=== PATIENT | female | born 1945 | race Caucasian/White ===

== ENCOUNTER → 2017-07-01 | Outpatient (CLI) | payer OTHER ==
[~2017-07-01] MED LIST: ACET-1256; ALBUAER2; [UNRECOGNIZED DRUG - OTHER]
--- NOTE | 2017-07-01 12:45 | DIAGNOSTIC IMAGING REPORT ---
RIGHT WRIST 4 VIEWS HISTORY: PAIN IN RIGHT WRIST COMPARISON: None. FINDINGS: No acute fracture or dislocation within the right wrist. The bones are osteopenic. 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 Mild osteoarthritis at the radiocarpal joint. Mild soft tissue swelling. No radiopaque foreign bodies. IMPRESSION: Mild soft tissue swelling within the right wrist. No acute fracture or dislocation. Electronically signed by: Alfonso Ferguson M.D. 07/01/2017 12:44 PM Dictated Date/Time: 07/01/2017 12:41 PM
== END | disposition home or self-care (01) ==
LOC: C.RAD1850 12:20
PROVIDERS: ATTEND Student in an Organized Health Care Education/Training Program
DX: M25.531 Pain in right wrist (principal); Z85.820 Personal history of malignant melanoma of skin

== ENCOUNTER 2019-10-24 17:35 | Inpatient (IN) ==
[2019-10-24] MEDS ORDERED: SODIUM CHLORIDE 0.9% 250 ML IV PRN ×2 (18:22→22:44)
[2019-10-24] MEDS ORDERED: PANTOprazole 80 MG in DEXTROSE 5% 100 ML IV ONE (18:22)
[2019-10-24] MEDS ORDERED: PANTOprazole 80 MG in DEXTROSE 5% 100 ML IV SCH (18:22)
--- NOTE | 2019-10-24 18:30 | Emergency Department Note ---
History of Present Illness General Chief complaint: Illness Stated complaint: HEMOGLOBIN IS 6, DR MCCLOUD, SOB, DIZZY Time Seen by Provider: 10/24/19 18:06 Source: patient Mode of arrival: ambulatory Limitations: no limitations History of Present Illness Provider complaint: Shortness of breath Onset (ago): month(s) Location: chest Severity: moderate Pain Consistency: + intermittent Maximum Pain Intensity: 2 Current Pain Intensity: 0 Quality: + other (Tightness) Exacerbated By: + other (Exertion) Associated symptoms: + chest pain; no cough, no fever/chills, no headaches and no malaise This is a 74-year-old female sent here for evaluation from her PCPs office after she had blood work today showing a hemoglobin of 6. The patient has been having shortness of breath since August. She states that initially it was from very long walks but she now states that even vacuuming the house makes her short of breath. She has also had chest pain with the shortness of breath. She describes it as a tightness in the center of her chest without radiation. She does not currently have the chest pain. It is worse with exertion. She went to see her PCP today who ordered a chest x-ray and blood work. She got a call after having her chest x-ray to go to the emergency department because her hemoglobin was 6. She does state that she has been having black stools intermittently for several months. The last time she had an episode was approximately within the past 6 to 10 days. She denies NSAID use. She does not take any blood thinners or aspirin. She denies any abdominal pain but states that her stomach has been gurgling quite a bit. Home Medications Home Medications Medication Instructions Recorded Confirmed Type acetaminophen 1,000 mg PO BID 10/24/19 10/24/19 History ascorbic acid (vitamin C) [Vitamin See Rx Instructions .ROUTE .COMPLEX 10/24/19 10/24/19 History C With Alana Hips] glucosamine-chondroitin [Osteo 1 tab PO BID 10/24/19 10/24/19 History Bi-Flex] multivitamin 1 tab PO DAILY 10/24/19 10/24/19 History omega 4-zol-oog-fish oil [Fish Oil] 1 cap PO DAILY 10/24/19 10/24/19 History Allergies Allergy/AdvReac Type Severity Reaction Status Date / Time codeine AdvReac Mild Nausea/Vomi Verified 10/24/19 19:35 ting Past Med/Surg History Medical History Asthma Osteoporosis Prediabetes Social History Preferred Language: 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 and A total of 10 systems reviewed and were otherwise negative Physical Exam Vital Signs Vital Signs - 24 hr 10/24/19 17:49 10/24/19 18:22 10/24/19 18:51 Temperature 37.0 C Temperature Source Oral Pulse Rate 89 80 Pulse Rate from SpO2 Sensor 80 Pulse Rhythm Pulse Strength Respiratory Rate 20 17 Blood Pressure 156/65 H 100/67 Blood Pressure Mean 95 74 Blood Pressure Position Sitting Pulse Oximetry 97 99 98 Oxygen Delivery Method Room Air Room Air Sepsis Recent Fever Within 48 Hours No Sepsis New/Unexplained Change in Mental Status No Sepsis Action Taken by Nursing No Action Required 10/24/19 19:30 10/24/19 19:46 10/24/19 20:41 Temperature 37.1 C Temperature Source Oral Pulse Rate 75 73 80 Pulse Rate from SpO2 Sensor 74 73 Pulse Rhythm Regular Pulse Strength Normal Respiratory Rate 17 14 20 Blood Pressure 130/59 L 135/59 L Blood Pressure Mean 87 84 Blood Pressure Position Lying Pulse Oximetry 98 97 97 Oxygen Delivery Method Room Air Room Air Sepsis Recent Fever Within 48 Hours Sepsis New/Unexplained Change in Mental Status Sepsis Action Taken by Nursing Constitutional: Vital signs reviewed. Eyes: Pupils are equal round reactive to light. Conjunctiva are noninjected. ENT: Pharynx is clear without erythema or exudate. Mucous membranes are moist. Neck supple without meningeal signs. Respiratory: Clear to auscultation bilaterally. Breath sounds are equal bilaterally. Cardiovascular: Regular rate and rhythm. No rubs or gallops. GI: Soft, nondistended and nontender. Bowel sounds are present. Guaiac positive brown stool. No melena or gross blood. Musculoskeletal: No peripheral edema. No lower extremity tenderness. Integumentary: No cyanosis. or jaundice. Neurological: The patient is awake and alert. No focal deficits. Psychiatric: Normal affect. Not anxious appearing. Course Administered Medications Discontinued Medications Pantoprazole Sodium 80 mg/ (Dextrose) 120 mls @ 480 mls/hr IV 1822 ASUNCION Stop: 10/24/19 18:36 Last Infusion: 10/24/19 19:20 Dose: 0 mls/hr Documented by: [id number] Admin: 10/24/19 19:03 Dose: 480 mls/hr Documented by: [id number] Critical Care Time Critical Care Time: Yes Total Critical Care Time: 36 I have personally spent approximately 36 minutes of critical care time in the direct management of this patient. This includes bedside care, interpretation of diagnostic studies, and testing, discussion with consultants, patient, and family members, and other required patient management activities. These minutes are in excess of all separately billable procedures. Medical Decision Making Differential Diagnosis Acute coronary syndrome, pneumonia, pleural effusion, GI bleed, anemia Medical Records Attestation: I reviewed the patient's medical records. The patient had a chest x-ray today which was unremarkable. Home Medications Current Medication List: was personally reviewed by me Laboratory Data Attestation: I reviewed the patient's lab results. Result diagrams: 10/24/19 18:34 10/24/19 18:34 Lab Results 10/24/19 10/24/19 10/24/19 Range/Units 18:34 18:34 18:34 WBC 6.11 (4.8-10.8) K/uL RBC 3.28 L (4.2-5.4) M/uL Hgb 5.8 L* (12.0-16.0) g/dL Hct 21.6 L (37-47) % MCV 65.9 L (80-100) fL MCH 17.7 L (25-34) pg MCHC 26.9 L (32-36) g/dL RDW Std Deviation 36.9 (36.4-46.3) fL RDW Coeff of Wesley 15.3 H (11.5-14.5) % Plt Count 299 (130-400) K/uL MPV 9.1 (7.4-10.4) fL Immature Gran % (Auto) 0.2 % Neut % (Auto) 60.0 % Lymph % (Auto) 25.9 % [place] % (Auto) 8.5 % Eos % (Auto) 4.3 % Baso % (Auto) 1.1 % Immature Gran # (Auto) 0.01 (0.00-0.02) K/uL Neut # (Auto) 3.67 (1.4-6.5) K/uL Lymph # (Auto) 1.58 (1.2-3.4) K/uL [place] # (Auto) 0.52 (0.11-0.59) K/uL Eos # (Auto) 0.26 (0-0.5) K/uL Baso # (Auto) 0.07 (0-0.2) K/uL Hypochromasia Present Microcytosis Present Ovalocytes 1+ PT 10.9 (9.0-12.0) Seconds INR 1.0 (0.9-1.1) APTT 20.9 L (21.0-31.0) Seconds PTT Ratio 0.7 Sodium 141 (136-145) mmol/L Potassium 3.7 (3.5-5.1) mmol/L Chloride 107 (98-107) mmol/L Carbon Dioxide 22 (21-32) mmol/L Anion Gap 12.0 H (3-11) BUN 11 (7-18) mg/dl Creatinine 0.89 (0.6-1.2) mg/dl Est Cr Clr Drug Dosing 53.5 ml/min Est GFR ( Amer) 74.5 Est GFR (Non-Af Amer) 64.3 BUN/Creatinine Ratio 12.1 (10-20) Glucose 125 H (70-99) mg/dl Calcium 8.7 (8.5-10.1) mg/dl Total Bilirubin 0.2 (0.2-1) mg/dl AST 9 L (15-37) U/L ALT 14 (12-78) U/L Alkaline Phosphatase 74 (45-117) U/L Troponin I < 0.015 (0-0.045) ng/ml Total Protein 6.6 (6.4-8.2) gm/dl Albumin 3.4 (3.4-5.0) gm/dl Globulin 3.2 (2.5-4.0) gm/dl Albumin/Globulin Ratio 1.1 (0.9-2) Blood Type Blood Type Recheck Antibody Screen Crossmatch 10/24/19 10/24/19 Range/Units 18:36 19:32 WBC (4.8-10.8) K/uL RBC (4.2-5.4) M/uL Hgb (12.0-16.0) g/dL Hct (37-47) % MCV (80-100) fL MCH (25-34) pg MCHC (32-36) g/dL RDW Std Deviation (36.4-46.3) fL RDW Coeff of Wesley (11.5-14.5) % Plt Count (130-400) K/uL MPV (7.4-10.4) fL Immature Gran % (Auto) % Neut % (Auto) % Lymph % (Auto) % [place] % (Auto) % Eos % (Auto) % Baso % (Auto) % Immature Gran # (Auto) (0.00-0.02) K/uL Neut # (Auto) (1.4-6.5) K/uL Lymph # (Auto) (1.2-3.4) K/uL [place] # (Auto) (0.11-0.59) K/uL Eos # (Auto) (0-0.5) K/uL Baso # (Auto) (0-0.2) K/uL Hypochromasia Microcytosis Ovalocytes PT (9.0-12.0) Seconds INR (0.9-1.1) APTT (21.0-31.0) Seconds PTT Ratio Sodium (136-145) mmol/L Potassium (3.5-5.1) mmol/L Chloride (98-107) mmol/L Carbon Dioxide (21-32) mmol/L Anion Gap (3-11) BUN (7-18) mg/dl Creatinine (0.6-1.2) mg/dl Est Cr Clr Drug Dosing ml/min Est GFR ( Amer) Est GFR (Non-Af Amer) BUN/Creatinine Ratio (10-20) Glucose (70-99) mg/dl Calcium (8.5-10.1) mg/dl Total Bilirubin (0.2-1) mg/dl AST (15-37) U/L ALT (12-78) U/L Alkaline Phosphatase (45-117) U/L Troponin I (0-0.045) ng/ml Total Protein (6.4-8.2) gm/dl Albumin (3.4-5.0) gm/dl Globulin (2.5-4.0) gm/dl Albumin/Globulin Ratio (0.9-2) Blood Type A Positive Blood Type Recheck A Positive Antibody Screen NEGATIVE Crossmatch See Detail Imaging Data Radiologist's Impression: TWO VIEW CHEST CLINICAL HISTORY: Progressive dyspnea. FINDINGS: PA and lateral chest radiographs are compared to study dated 08/13/2006. The cardiomediastinal silhouette is unremarkable. There is a large hiatal hernia with associated basilar atelectasis. The lungs and pleural spaces are otherwise clear. There is no pneumothorax. The skeletal structures are osteopenic. The bony thorax appears intact. IMPRESSION: 1. No active disease in the chest. 2. Large hiatal hernia. ECG Data Attestation: I personally reviewed and interpreted this ECG as follows: Indication: + chest pain Rate (beats per minute): 86 Rhythm: + normal sinus ECG Intervals/blocks: no First degree AV block ECG ST segments: no ST elevation ECG Findings: no PVCs Blood Pressure Blood Pressure Findings: Elevated blood pressure Blood Pressure Disposition: further management by hospitalist [facility] Narrative I did evaluate the patient as noted above. The patient is presenting with exertional dyspnea and chest pain. She is not currently having those symptoms. She was told by her PCP today that her hemoglobin was 6. She does admit to melanotic stools for the past several months and has guaiac positive stool here on my exam. IV access was established. I did place an order for continuous cardiac monitoring. The monitor showed normal sinus rhythm with a rate of 89. I did order and personally review the patient's 12-lead EKG as described above. There is no evidence of acute ischemia on twelve-lead EKG. I did personally reviewed the images of the patient's chest x-ray performed earlier today as described above. There is no acute abnormality. I did obtain informed consent for blood transfusion and ordered 2 units of packed RBCs to be transfused now. I did order Protonix IV. I did order and review the patient's blood work as noted in the electronic medical record. Her hemoglobin is 5.8 here. Her white count is elevated. Troponin is negative. I did discuss the test results with the patient. Transfusion was started in the emergency department. She states she had a colonoscopy about 2 months ago but does not know she has had endoscopy. She will be admitted to the hospital for further care and evaluation. I did discuss the case with the hospitalist and case consultant. Impression & Plan Acute GI bleeding, Symptomatic anemia, Chest pain, exertional Discharge Plan Visit Data *Final* Discharge Date/Time: 10/24/19 21:30 Chief Complaint: Illness Stated Complaint: HEMOGLOBIN IS 6, DR SENT, SOB, DIZZY ED Provider: Jay Erwin Discharge Problem: Acute GI bleeding, Symptomatic anemia, Chest pain, exertional Patient Disposition: Admitted As Inpatient Discharge Instructions Interventions: ED Discharge Assessment Last Done: 10/24/19 21:30
[2019-10-24 19:01] LABS: Partial Thromboplastin Ratio 0.7; Partial Thromboplastin Time 20.9 Seconds (21.0-31.0); Prothrombin Time 10.9 Seconds (9.0-12.0)
[2019-10-24 19:05] LABS: Hematocrit (blood only) 21.6 % (37-47); Hemoglobin 5.8 g/dL (12.0-16.0); Mean Corpuscular Hemoglobin 17.7 pg (25-34); Mean Corpuscular Hgb Conc 26.9 g/dL (32-36); Mean Corpuscular Volume 65.9 fL (80-100); Mean Platelet Volume 9.1 fL (7.4-10.4); Platelet Count 299 K/uL (130-400); RDW Coefficient of Variation 15.3 % (11.5-14.5); RDW Standard Deviation 36.9 fL (36.4-46.3); Red Blood Count 3.28 M/uL (4.2-5.4); White Blood Count 6.11 K/uL (4.8-10.8)
[2019-10-24 19:16] LABS: Alanine Aminotransferase 14 U/L (12-78); Albumin Level 3.4 gm/dl (3.4-5.0); Aspartate Aminotransferase 9 U/L (15-37); BUN Creatinine Ratio 12.1 (10-20); Blood Urea Nitrogen 11 mg/dl (7-18); Calcium 8.7 mg/dl (8.5-10.1); Carbon Dioxide 22 mmol/L (21-32); Chloride 107 mmol/L (98-107); Creatinine Clr Calc Pharmacy 53.5 ml/min; Est GFR (African American) 74.5; Est GFR (Non-African American) 64.3; Glucose 125 mg/dl (70-99); Potassium 3.7 mmol/L (3.5-5.1); Sodium 141 mmol/L (136-145)
[2019-10-24 19:21] LABS: Albumin Globulin Ratio 1.1 (0.9-2); Alkaline Phosphatase 74 U/L (45-117); Bilirubin,Total 0.2 mg/dl (0.2-1); Globulin 3.2 gm/dl (2.5-4.0); Total Protein 6.6 gm/dl (6.4-8.2); Troponin I < 0.015 ng/ml (0-0.045)
[2019-10-24 19:56] LABS: Basophils # (auto) 0.07 K/uL (0-0.2); Basophils % (auto) 1.1 %; Eosinophils # (auto) 0.26 K/uL (0-0.5); Eosinophils % (auto) 4.3 %; Hypochromasia Present; Immature Granulocytes # (auto) 0.01 K/uL (0.00-0.02); Immature Granulocytes % (auto) 0.2 %; Lymphocytes # (auto) 1.58 K/uL (1.2-3.4); Lymphocytes % (auto) 25.9 %; Microcytosis Present; Monocytes # (auto) 0.52 K/uL (0.11-0.59); Monocytes % (auto) 8.5 %; Neutrophils # (auto) 3.67 K/uL (1.4-6.5); Ovalocytes 1+
--- NOTE | 2019-10-24 21:20 | History & Physical Report ---
Date of Service October 24, 2019 Assessment & Plan (1) Symptomatic anemia: Aleah Antonio is a 74y/o F w/ PMH significant for asthma, and a h/o melanoma; presented to the ED after she having blood work completed by PCP earlier today that demonstrated a hemoglobin of 6. Symptomatic anemia: - ? GI blood loss given recent stool changes verse iron deficiency - Hgb 5.8 on admission - patient typed and crossed, set to be transfused two units overnight - repeat CBC in AM - Iron studies not completed prior to start of transfusions - Ferritin pending Diet: NPO DVT ppx: Code status: Conditional code: do not intubate, no mechanical ventilation (2) Asthma: History of Present Illness Primary Care Provider: Virgilio Carlson MD Aleah Antonio is a 74y/o F w/ PMH significant for asthma, and a h/o melanoma; presented to the ED after she having blood work completed by PCP earlier today that demonstrated a hemoglobin of 6. Over the last several months she has noted worsening shortness of breath, and increasingly easy fatigability; she first noticed this in June when she was forced to reduce the length of her regular treadmill walking workouts from 30-35 minute stretches to 15 minutes before she felt fatigued. This continued to progress over the following months but given concern for COVID-19 in the general public she avoided being seen at that time. Since August she has noticed that this has worsened to the point that she couldn't even make it to the mailbox without feeling short of breath. During these episodes she feels her heart racing, feels short of breath, and has a chest tightness that does not radiate. Additionally over the last two months has noticed that over the last two months she has episodically had loose dark stools; she first noticed these after she ate 6 apricots and then the next morning she had loose stools that were darker brown. She denies any visible blood in the toilet or on the toilet paper, or a black tarry nature to the stools. These stools will happen approximately every 5-10 days with the last episode happening approximately 6 days ago. Allergies Allergy/AdvReac Type Severity Reaction Status Date / Time codeine AdvReac Mild Nausea/Vomi Verified 10/24/19 19:35 ting Home Medications Home Medications Medication Instructions Recorded Confirmed Type acetaminophen 1,000 mg PO BID 10/24/19 10/24/19 History ascorbic acid (vitamin C) [Vitamin See Rx Instructions .ROUTE .COMPLEX 10/24/19 10/24/19 History C With Alana Hips] glucosamine-chondroitin [Osteo 1 tab PO BID 10/24/19 10/24/19 History Bi-Flex] multivitamin 1 tab PO DAILY 10/24/19 10/24/19 History omega 3-qux-zzx-fish oil [Fish Oil] 1 cap PO DAILY 10/24/19 10/24/19 History Past Med/Surg History Medical History Asthma Osteoporosis Prediabetes Social History Preferred Language: Libyan 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 Beliefs That Will Affect Care: None Current Living Situation: Family Other Information That Helps Us Care for You: No Feels Safe at Home: Yes Safety Concerns: Feels Safe At This Time Smoking Status: Never smoker Hx Alcohol Use: Yes Alcohol type: wine Hx Substance Use: No Review of Systems Review of Systems: All systems reviewed & are unremarkable except as noted in HPI & below Physical Exam Constitutional: WD/WN, vitals as above Eyes: PERRL, conjunctivae normal, anicteric sclerae ENMT: external ear and nose normal, oropharynx normal Neck: normal visual inspection Respiratory: normal respiratory effort, lungs clear to auscultation Cardiovascular: Rate/Rhythm: regular rate and regular rhythm Heart Sounds: normal S1 and normal S2; no gallop, no murmur and no cardiac rub Vessels: no JVD Extremities: no edema Gastrointestinal (Abdomen): normal bowel sounds, soft, nontender, no hepatosplenomegaly Musculoskeletal: no cyanosis or clubbing, extremities motor strength 5/5 Skin: no rashes, warm and dry no jaundice Neurologic: patellar DTR's 2+ bilat, sensation intact CN's II-XI intact bilaterally Psychiatric: A+Ox3, euthymic affect Lymphatic: no cervical or axillary lymphadenopathy Results & Data Results & Data ([facility]) Vital Signs (Past 12 Hours) Vital Signs Temp Pulse Resp BP Pulse Ox 10/24/19 21:01 37.1 C 69 20 128/60 95 10/24/19 20:41 37.1 C 80 20 135/59 L 97 10/24/19 19:46 73 14 130/59 L 97 10/24/19 19:30 75 17 98 10/24/19 18:51 80 17 100/67 98 10/24/19 18:22 99 10/24/19 17:49 37.0 C 89 20 156/65 H 97 Laboratory Results 10/24/19 10/24/19 10/24/19 Range/Units 19:32 18:36 18:34 WBC (4.8-10.8) K/uL RBC (4.2-5.4) M/uL Hgb (12.0-16.0) g/dL Hct (37-47) % MCV (80-100) fL MCH (25-34) pg MCHC (32-36) g/dL RDW Std Deviation (36.4-46.3) fL RDW Coeff of Wesley (11.5-14.5) % Plt Count (130-400) K/uL MPV (7.4-10.4) fL Immature Gran % (Auto) % Neut % (Auto) % Lymph % (Auto) % [place] % (Auto) % Eos % (Auto) % Baso % (Auto) % Immature Gran # (Auto) (0.00-0.02) K/uL Neut # (Auto) (1.4-6.5) K/uL Lymph # (Auto) (1.2-3.4) K/uL [place] # (Auto) (0.11-0.59) K/uL Eos # (Auto) (0-0.5) K/uL Baso # (Auto) (0-0.2) K/uL Hypochromasia Microcytosis Ovalocytes PT 10.9 (9.0-12.0) Seconds INR 1.0 (0.9-1.1) APTT 20.9 L (21.0-31.0) Seconds PTT Ratio 0.7 Sodium (136-145) mmol/L Potassium (3.5-5.1) mmol/L Chloride (98-107) mmol/L Carbon Dioxide (21-32) mmol/L Anion Gap (3-11) BUN (7-18) mg/dl Creatinine (0.6-1.2) mg/dl Est Cr Clr Drug Dosing ml/min Est GFR ( Amer) Est GFR (Non-Af Amer) BUN/Creatinine Ratio (10-20) Glucose (70-99) mg/dl Calcium (8.5-10.1) mg/dl Total Bilirubin (0.2-1) mg/dl AST (15-37) U/L ALT (12-78) U/L Alkaline Phosphatase (45-117) U/L Troponin I (0-0.045) ng/ml Total Protein (6.4-8.2) gm/dl Albumin (3.4-5.0) gm/dl Globulin (2.5-4.0) gm/dl Albumin/Globulin Ratio (0.9-2) Blood Type A Positive Blood Type Recheck A Positive Antibody Screen NEGATIVE Crossmatch See Detail 10/24/19 10/24/19 Range/Units 18:34 18:34 WBC 6.11 (4.8-10.8) K/uL RBC 3.28 L (4.2-5.4) M/uL Hgb 5.8 L* (12.0-16.0) g/dL Hct 21.6 L (37-47) % MCV 65.9 L (80-100) fL MCH 17.7 L (25-34) pg MCHC 26.9 L (32-36) g/dL RDW Std Deviation 36.9 (36.4-46.3) fL RDW Coeff of Wesley 15.3 H (11.5-14.5) % Plt Count 299 (130-400) K/uL MPV 9.1 (7.4-10.4) fL Immature Gran % (Auto) 0.2 % Neut % (Auto) 60.0 % Lymph % (Auto) 25.9 % [place] % (Auto) 8.5 % Eos % (Auto) 4.3 % Baso % (Auto) 1.1 % Immature Gran # (Auto) 0.01 (0.00-0.02) K/uL Neut # (Auto) 3.67 (1.4-6.5) K/uL Lymph # (Auto) 1.58 (1.2-3.4) K/uL [place] # (Auto) 0.52 (0.11-0.59) K/uL Eos # (Auto) 0.26 (0-0.5) K/uL Baso # (Auto) 0.07 (0-0.2) K/uL Hypochromasia Present Microcytosis Present Ovalocytes 1+ PT (9.0-12.0) Seconds INR (0.9-1.1) APTT (21.0-31.0) Seconds PTT Ratio Sodium 141 (136-145) mmol/L Potassium 3.7 (3.5-5.1) mmol/L Chloride 107 (98-107) mmol/L Carbon Dioxide 22 (21-32) mmol/L Anion Gap 12.0 H (3-11) BUN 11 (7-18) mg/dl Creatinine 0.89 (0.6-1.2) mg/dl Est Cr Clr Drug Dosing 53.5 ml/min Est GFR ( Amer) 74.5 Est GFR (Non-Af Amer) 64.3 BUN/Creatinine Ratio 12.1 (10-20) Glucose 125 H (70-99) mg/dl Calcium 8.7 (8.5-10.1) mg/dl Total Bilirubin 0.2 (0.2-1) mg/dl AST 9 L (15-37) U/L ALT 14 (12-78) U/L Alkaline Phosphatase 74 (45-117) U/L Troponin I < 0.015 (0-0.045) ng/ml Total Protein 6.6 (6.4-8.2) gm/dl Albumin 3.4 (3.4-5.0) gm/dl Globulin 3.2 (2.5-4.0) gm/dl Albumin/Globulin Ratio 1.1 (0.9-2) Blood Type Blood Type Recheck Antibody Screen Crossmatch Medications Administered Current Inpatient Medications Sodium Chloride (Nss) 250 mls @ 15 mls/hr IV .[id number] PRN PRN Reason: For Transfusion Stop: 10/25/19 04:24 Supervising Physician Co-Signing Physician Notes Patient seen and examined, chart reviewed, case discussed with Dr. Barraza and I agree with his assessment and plan as documented above. Briefly, patient is a 74yo C female presenting with symptomatic anemia,?melenic stools ongoing over the last 2 months. On exam she is afebrile, HD stable, NAD Skin - +pallor, no rash HEENT - NC/AT,PERRL, EOMI, MMM, Neck supple Heart - +S1/S2, regular, no m/r/g Lungs- CTA Abd - +BS, soft, NT/ND Ext - No edema Labs and images reviewed. Significant for microcytic/hypochromic anemia with Hgb=5.8 Trop = negative EKG = unremarkable Hemoccult + stools per ER Assessment/Plan: 74yo C female presenting with symptomatic anemia, ?GIB -Admit to medical floor -Transfuse 2uPRBCs, monitor CBC -GI consultation apprecated -Remainder of plan as above Resident Activity Tracking Resident Involvement: Resident Care Provided Care Provided: Adult Hospital Medicine
[2019-10-24] MEDS ORDERED: ALUMINUM/MAGNESIUM SUSP 30 ML UDC PO PRN (21:50)
[2019-10-24] MEDS ORDERED: POLYETHYLENE (MIRALAX) 17 GM PACK PO PRN (21:50)
[2019-10-24] MEDS ORDERED: ONDANSETRON INJ 2 MG/ML 2 ML VIAL IV PRN (21:50)
[2019-10-24] MEDS ORDERED: MAGNESIUM HYDROXIDE SUSP 30 ML UDC PO PRN (21:50)
--- NOTE | 2019-10-25 06:59 | Billing Data ---
Date of Service October 25, 2019 Coding Level of Care Code 38658 Initial Inpt Care Lvl 2
[2019-10-25 07:51] LABS: Hematocrit (blood only) 27.7 % (37-47); Hemoglobin 7.9 g/dL (12.0-16.0); Mean Corpuscular Hemoglobin 19.9 pg (25-34); Mean Corpuscular Hgb Conc 28.5 g/dL (32-36); Mean Corpuscular Volume 69.9 fL (80-100); Mean Platelet Volume 9.4 fL (7.4-10.4); Platelet Count 253 K/uL (130-400); RDW Coefficient of Variation 18.6 % (11.5-14.5); RDW Standard Deviation 47.5 fL (36.4-46.3); Red Blood Count 3.96 M/uL (4.2-5.4); White Blood Count 6.42 K/uL (4.8-10.8)
[2019-10-25 08:10] LABS: Basophils # (auto) 0.04 K/uL (0-0.2); Basophils % (auto) 0.6 %; Eosinophils % (auto) 4.7 %; Hypochromasia Present; Immature Granulocytes # (auto) 0.02 K/uL (0.00-0.02); Immature Granulocytes % (auto) 0.3 %; Lymphocytes # (auto) 1.57 K/uL (1.2-3.4); Lymphocytes % (auto) 24.5 %; Microcytosis Present; Monocytes # (auto) 0.64 K/uL (0.11-0.59); Neutrophils # (auto) 3.85 K/uL (1.4-6.5); Neutrophils % (auto) 59.9 %
[2019-10-25 08:17] LABS: BUN Creatinine Ratio 13.3 (10-20); Calcium 8.2 mg/dl (8.5-10.1); Creatinine Clr Calc Pharmacy 70.8 ml/min; Est GFR (African American) 101.1; Est GFR (Non-African American) 87.2; Magnesium 2.1 mg/dl (1.8-2.4); Phosphorus 3.7 mg/dl (2.5-4.9); Potassium 3.7 mmol/L (3.5-5.1)
[2019-10-25] MEDS ORDERED: SODIUM CHLORIDE 0.9% 250 ML IV PRN ×2 (08:49→09:50)
--- NOTE | 2019-10-25 09:33 | Gastrointestinal Consultation ---
Date of Consultation October 25, 2019 Assessment & Plan (1) Symptomatic anemia: (2) Heme positive stool: (3) Chronic blood loss anemia: Keep NPO at present. EGD today, with further recommendations to follow. History of Present Illness Reason for Consultation: Heme positive stool, Chronic blood loss anemia Attending Physician: Elisha Truong DO History of Present Illness Aleah Antonio presented to the [facility] yesterday after having outpatient lab work secondary to fatigue and SOB, and was noted to have profound anemia with an H/H of 5.8/21.6. She was given a bolus of Pantoprazole 80 mg in the ER, and was admitted. At the time I saw her this AM, she was feeling better after she had received 2 u PRBC. She currently denies any fevers, chills, nausea, vomiting, diarrhea, hematemesis, hematochezia or melena at present. She notes that in June she had increased fatigue and decreased exercise tolerance. She noted that she has had multiple black stools over the past few months. She states that she does not routinely take NSAID's. She had a normal brown BM yesterday. She states she has no history of heartburn or ulcers, and does not take any antacids. Her last colonoscopy was 1 year ago. She has no further complaints. Allergies Allergy/AdvReac Type Severity Reaction Status Date / Time codeine AdvReac Mild Nausea/Vomi Verified 10/24/19 19:35 ting Home Medications Home Medications Medication Instructions Recorded Confirmed Type acetaminophen 1,000 mg PO BID 10/24/19 10/24/19 History ascorbic acid (vitamin C) [Vitamin See Rx Instructions .ROUTE .COMPLEX 10/24/19 10/24/19 History C With Alana Hips] glucosamine-chondroitin [Osteo 1 tab PO BID 10/24/19 10/24/19 History Bi-Flex] multivitamin 1 tab PO DAILY 10/24/19 10/24/19 History omega 8-rxu-mpm-fish oil [Fish Oil] 1 cap PO DAILY 10/24/19 10/24/19 History Patient History Medical History Asthma Osteoporosis Prediabetes Social History Preferred Language: Maltese [employer]ant Swimmer Required: No Beliefs That Will Affect Care: None Current Living Situation: Family Other Information That Helps Us Care for You: No Feels Safe at Home: Yes Safety Concerns: Feels Safe At This Time Smoking Status: Never smoker Hx Alcohol Use: Yes Alcohol type: wine Hx Substance Use: No Review of Systems Review of Systems: All systems reviewed & are unremarkable except as noted in HPI & below Physical Exam Constitutional: WD/WN, vitals as above Eyes: PERRL, conjunctivae normal, anicteric sclerae ENMT: external ear and nose normal, oropharynx normal Neck: trachea midline, no thyromegaly Respiratory: normal respiratory effort, lungs clear to auscultation Cardiovascular: RRR, no murmur, no edema Gastrointestinal (Abdomen): normal bowel sounds, soft, nontender, no hepatosplenomegaly Skin: no rashes, warm and dry Psychiatric: A+Ox3, euthymic affect Results & Data ([facility]) Vital Signs (Past 12 Hours) Vital Signs Temp Pulse Pulse Resp BP BP Pulse Ox 10/25/19 08:35 64 10/25/19 07:55 36.8 C 68 16 113/51 L 96 10/25/19 03:01 36.9 C 69 19 120/58 L 94 10/25/19 02:24 37.1 C 18 133/68 95 10/25/19 02:07 37.1 C 68 16 135/67 95 10/25/19 01:07 36.8 C 134/66 96 10/25/19 00:37 37.1 C 70 17 133/66 95 10/25/19 00:21 37.0 C 69 18 127/63 96 10/25/19 00:05 37.0 C 74 18 143/61 H 97 10/25/19 00:03 37.0 C 76 18 143/61 H 97 10/24/19 22:20 72 10/24/19 22:12 37.0 C 80 14 148/55 H 98 10/24/19 22:05 71 10/24/19 21:48 37.0 C 80 14 148/55 H 98 PG Care Time/CCT Total # of Minutes Spent Total Time Spent with Patient: Total time spent is greater than 50% in coordination of care (as documented) at patient's floor/unit and/or counseling patient: Coding Level of Care Code 29652 Inpt Consult Level 3 Diagnoses Symptomatic anemia D64.9 Heme positive stool R19.5 Chronic blood loss anemia D50.0
[2019-10-25] MEDS ORDERED: ATROPINE SULFATE 0.1 MG/ML 10ML SYR IV PRN (11:12)
[2019-10-25] MEDS ORDERED: ONDANSETRON INJ 2 MG/ML 2 ML VIAL IV PRN (11:12)
[2019-10-25] MEDS ORDERED: ePHEDrine sulfate 50 MG/ML AMP IV PRN (11:12)
--- NOTE | 2019-10-25 11:12 | Anesthesiology Consultation ---
Date of Service October 25, 2019 Assessment & Plan ASA ASA3 Proposed Anesthesia Anesthesia Type: MAC Risk / Benefits Reviewed With: PT / POA / Parent / Guardian, Accepts Plan and Informed Consent Obtained History Surgery Operation Date: 10/25/19 16:00 Proposed Procedures p Esophagogastroduodenoscopy Dr Esdras Dewitt, DO Height/Weight Height: 5 ft 4 in Weight: 67.8 kg Allergies Allergy/AdvReac Type Severity Reaction Status Date / Time codeine AdvReac Mild Nausea/Vomi Verified 10/24/19 19:35 ting Medications Home Medications Medication Instructions Recorded Confirmed Last Taken acetaminophen 1,000 mg PO BID 10/24/19 10/24/19 Unknown ascorbic acid (vitamin C) [Vitamin See Rx Instructions .ROUTE .COMPLEX 10/24/19 10/24/19 Unknown C With Alana Hips] glucosamine-chondroitin [Osteo 1 tab PO BID 10/24/19 10/24/19 Unknown Bi-Flex] multivitamin 1 tab PO DAILY 10/24/19 10/24/19 Unknown omega 8-erj-san-fish oil [Fish Oil] 1 cap PO DAILY 10/24/19 10/24/19 Unknown NPO Date Last Intake of Fluids: 10/24/19 Time Last Intake of Fluids: 10:30 Last Intake of Fluids Comment: ice chips Date Last Intake of Solids: 10/24/19 Time Last Intake of Solids: 17:00 Last Intake of Solids Comment: apple sauce, yogurt Past Medical History Medical History Asthma Osteoporosis Prediabetes Exercise / Class Metabolic Activity II 4-5 Yardwork/Stairs/Walk up hill Past Anesthesia History No Hx of Anesthesia Complications and No Family Hx of Anesthesia Complications History of PONV No Hx of PONV and No Hx of Motion Sickness Social History Smoking Status: Never smoker Hx Alcohol Use: Yes Alcohol type: wine alcohol intake frequency: holidays/special occasions only Hx Substance Use: No Review of Systems denies fever/cough/ colds/ chest pain/ SOB/ MARIO Constitutional: no fever and no chills Respiratory: no cough and no dyspnea denies MARIO Cardiovascular: no chest pain and no dyspnea on exertion Physical Exam Vital Signs Last Vital Signs Temp 36.8 C 10/25/19 10:39 Pulse 66 05/20/20 10:39 Resp 18 10/25/19 10:39 BP 128/61 10/25/19 10:39 Pulse Ox 95 10/25/19 10:39 ENMT Mouth: no TMJ abnormality and no dentition abnormality Thyromental Distance: > or= 3.5 Finger Breadths Mallampati Class: II Neck neck extension not limited Respiratory normal respiratory effort; no respiratory distress Auscultation: lungs clear to auscultation bilaterally Cardiovascular Rate/Rhythm: regular rate and regular rhythm Neurologic moves all extremities Psychiatric Orientation: alert and oriented x 3 Testing Laboratory Results 10/25/19 07:17 10/25/19 07:17 PT 10.9 Seconds (9.0-12.0) 10/24/19 18:34 INR 1.0 (0.9-1.1) 10/24/19 18:34 APTT 20.9 Seconds (21.0-31.0) L 10/24/19 18:34 Blood Type A Positive 10/24/19 18:36 Antibody Screen NEGATIVE 10/24/19 18:36
[2019-10-25] MEDS ORDERED: PROPOFOL IV EMULSION 10 MG/ML 20 ML VIAL IV ONE (11:36)
[2019-10-25] MEDS ORDERED: LIDOCAINE HCL 2% 2 ML VIAL/AMP(20MG/ML) INFIL ONE (11:36)
--- NOTE | 2019-10-25 12:19 | GI REPORT ---
Patient Name: Aleah Antonio Procedure Date: 10/25/2019 11:54 AM Date of : 1945 Admit Type: Inpatient Age: 74 Gender: Female Attending MD: Jay Dewitt DO Procedure: Upper GI endoscopy Providers: Jay Dewitt DO Referring MD: Elisha Truong Indications: Iron deficiency anemia secondary to chronic blood loss, Heme positive stool Medicines: Monitored Anesthesia Care Complications: No immediate complications. Estimated Blood Loss: Estimated blood loss: none. Procedure: Pre-Anesthesia Assessment: - Prior to the procedure, a History and Physical was performed, and patient medications and allergies were reviewed. The patient's tolerance of previous anesthesia was also reviewed. The risks and benefits of the procedure and the sedation options and risks were discussed with the patient. All questions were answered, and informed consent was obtained. Prior Anticoagulants: The patient has taken no previous anticoagulant or antiplatelet agents. ASA Grade Assessment: III - A patient with severe systemic disease. After reviewing the risks and benefits, the patient was deemed in satisfactory condition to undergo the procedure. After obtaining informed consent, the endoscope was passed under direct vision. Throughout the procedure, the patient's blood pressure, pulse, and oxygen saturations were monitored continuously. The Endoscope was introduced through the mouth, and advanced to the second part of duodenum. The upper GI endoscopy was accomplished without difficulty. The patient tolerated the procedure well. Findings: A moderate Schatzki ring was found in the distal esophagus. A TTS dilator was passed through the scope. Dilation with an 18-19-20 mm balloon dilator was performed to 20 mm. The dilation site was examined and showed moderate improvement in luminal narrowing. A medium-sized hiatal hernia was present. The examined duodenum was normal. Impression: - Moderate Schatzki ring. Dilated. - Medium-sized hiatal hernia. - Normal examined duodenum. - No specimens collected. Recommendation: - [facility]. - Perform a colonoscopy tomorrow, as there were no findings on this exam to explain her chronic blood loss and heme positive stool. - Clear liquid diet. - Continue present medications. Jay Dewitt DO 10/25/2019 12:19:07 PM This report has been signed electronically. Note Initiated On: 10/25/2019 11:54 AM Number of Addenda: 0 I attest to the content of the Intraoperative Record and orders documented therein, exceptions below {[id number]}
--- NOTE | 2019-10-25 12:33 | Anesthesiology Progress Note ---
Date of Service October 25, 2019 Anesthesia Post Procedure Vital Signs Vital Signs: Temp Pulse Pulse Resp BP BP Pulse Ox 10/25/19 12:27 58 L 16 143/61 H 96 10/25/19 12:12 62 16 141/63 H 96 10/25/19 10:39 36.8 C 66 18 128/61 95 10/25/19 08:35 64 10/25/19 07:55 36.8 C 68 16 113/51 L 96 10/25/19 03:01 36.9 C 69 19 120/58 L 94 10/25/19 02:24 37.1 C 18 133/68 95 10/25/19 02:07 37.1 C 68 16 135/67 95 10/25/19 01:07 36.8 C 134/66 96 10/25/19 00:37 37.1 C 70 17 133/66 95 10/25/19 00:21 37.0 C 69 18 127/63 96 10/25/19 00:05 37.0 C 74 18 143/61 H 97 10/25/19 00:03 37.0 C 76 18 143/61 H 97 10/24/19 22:20 72 10/24/19 22:12 37.0 C 80 14 148/55 H 98 10/24/19 22:05 71 10/24/19 21:48 37.0 C 80 14 148/55 H 98 10/24/19 21:15 37.0 C 69 18 128/61 96 10/24/19 21:01 37.1 C 69 20 128/60 95 10/24/19 20:41 37.1 C 80 20 135/59 L 97 10/24/19 19:46 73 14 130/59 L 97 10/24/19 19:30 75 17 98 10/24/19 18:51 80 17 100/67 98 10/24/19 18:22 99 10/24/19 17:49 37.0 C 89 20 156/65 H 97 Transfer of Care Handoff Completed per policy Notes Mental Status: alert / awake / arousable and participated in evaluation Patient Amnestic to Procedure: Yes Nausea / Vomiting: adequately controlled Pain: adequately controlled Airway Patency, RR, SpO2: stable & adequate BP & HR: stable & adequate Hydration State: stable & adequate Anesthetic Complications: no major complications apparent and Pt Satisfied with anesthetic care
--- NOTE | 2019-10-25 14:34 | Electrocardiogram Report ---
Test Reason : Blood Pressure : / mmHG Vent. Rate : 086 BPM Atrial Rate : 086 BPM P-R Int : 166 ms QRS Dur : 082 ms QT Int : 354 ms P-R-T Axes : 016 -07 022 degrees QTc Int : 423 ms Normal sinus rhythm Nonspecific ST and T wave abnormality Abnormal ECG No previous ECGs available Confirmed by Yohan Sandhu ([id number]) on 10/25/2019 2:34:13 PM Referred By: Virgilio Carlson Confirmed By:Dimitry Sandhu
--- NOTE | 2019-10-25 14:40 | Hospitalist Progress Note ---
Date of Service October 25, 2019 Assessment & Plan (1) Symptomatic anemia: Aleah Antonio is a 74y/o F w/ PMH significant for asthma, and a h/o melanoma; presented to the ED after she having blood work completed by PCP earlier today that demonstrated a hemoglobin of 6. Symptomatic anemia: - ? GI blood loss given recent stool changes verse iron deficiency Heme + in ED - Hgb 5.8 on admission, improved to 7.8 s/p 2 units PRBC, give another 2 units 10/24 - repeat CBC in AM - Iron studies not completed prior to start of transfusions - Ferritin pending EGD neg, planning for c-scope tomorrow Diet: NPO DVT ppx: Code status: Conditional code: do not intubate, no mechanical ventilation (2) Asthma: Admission and Anticipated Discharge Date Admission Date: October 24, 2019 Subjective Pt states she is feeling much improved s/p PRBC. She states she was able to walk to the bathroom without SOB. No further palpitations. Pt denies fever,chest pain, abd pain, n/v/c/d, LE pain or swelling. Review of Systems Review of Systems: Pertinent positives and negatives reviewed in HPI--all others negative Physical Exam Constitutional: WD/WN, vitals as above Eyes: normal visual lopez by confrontation and + anicteric sclerae Neck: normal visual inspection and trachea midline Respiratory: normal respiratory effort, lungs clear to auscultation Cardiovascular: Rate/Rhythm: regular rate and regular rhythm Extremities: no edema Gastrointestinal (Abdomen): Inspection/Auscultation: abdomen not distended Percussion/Palpation: abdomen soft; abdomen nontender Musculoskeletal: Head/Neck/Chest: normocephalic and head atraumatic negative for edema, peripheral pulses intact Skin: no rashes, warm and dry Neurologic: awake; not confused Speech / Cognition: normal speech Psychiatric: A+Ox3, euthymic affect Results & Data Results & Data ([facility]) Vital Signs (Past 12 Hours) Vital Signs Temp Pulse Pulse Resp BP BP Pulse Ox 10/25/19 14:10 36.9 C 86 18 127/66 99 10/25/19 13:50 36.9 C 73 18 128/67 99 10/25/19 13:25 36.9 C 65 18 137/68 99 10/25/19 13:04 36.5 C 71 18 144/71 H 99 10/25/19 12:43 59 L 16 142/68 H 96 10/25/19 12:27 58 L 16 143/61 H 96 10/25/19 12:12 62 16 141/63 H 96 10/25/19 10:39 36.8 C 66 18 128/61 95 10/25/19 08:35 64 10/25/19 07:55 36.8 C 68 16 113/51 L 96 10/25/19 03:01 36.9 C 69 19 120/58 L 94 PG Care Time/CCT Total # of Minutes Spent Total Time Spent with Patient: Total time spent is greater than 50% in coordination of care (as documented) at patient's floor/unit and/or counseling patient: Coding Level of Care Code 29938 Subseq Hosp Care Lvl 3 Diagnoses Symptomatic anemia D64.9 Asthma J45.909
[2019-10-25] MEDS ORDERED: bisacodyL 5 MG TABEC PO ONE (18:00)
[2019-10-25] MEDS ORDERED: POLYETHYLENE (MIRALAX) 17 GM PACK PO ONE (20:00)
[2019-10-26] MEDS ORDERED: POLYETHYLENE (MIRALAX) 17 GM PACK PO ONE (02:00)
[2019-10-26 07:25] LABS: Basophils # (auto) 0.07 K/uL (0-0.2); Basophils % (auto) 1.1 %; Eosinophils # (auto) 0.43 K/uL (0-0.5); Eosinophils % (auto) 6.5 %; Hematocrit (blood only) 34.5 % (37-47); Hemoglobin 10.4 g/dL (12.0-16.0); Immature Granulocytes # (auto) 0.05 K/uL (0.00-0.02); Immature Granulocytes % (auto) 0.8 %; Lymphocytes # (auto) 1.31 K/uL (1.2-3.4); Lymphocytes % (auto) 19.8 %; Mean Corpuscular Hgb Conc 30.1 g/dL (32-36); Mean Corpuscular Volume 72.9 fL (80-100); Mean Platelet Volume 9.8 fL (7.4-10.4); Monocytes # (auto) 0.85 K/uL (0.11-0.59); Monocytes % (auto) 12.9 %; Neutrophils # (auto) 3.89 K/uL (1.4-6.5); Neutrophils % (auto) 58.9 %; Platelet Count 237 K/uL (130-400); RDW Coefficient of Variation 19.6 % (11.5-14.5); RDW Standard Deviation 51.7 fL (36.4-46.3); Red Blood Count 4.73 M/uL (4.2-5.4)
[2019-10-26 08:10] LABS: Anisocytosis Present; Polychromasia 1+
--- NOTE | 2019-10-26 10:06 | Family Medicine Progress Note ---
Date of Service October 26, 2019 Assessment & Plan Admission and Anticipated Discharge Date Admission Date: October 24, 2019 Results & Data ([facility]) Vital Signs (Past 12 Hours) Vital Signs Temp Pulse Pulse Pulse Resp BP Pulse Ox 10/26/19 08:01 59 L 10/26/19 07:19 37.1 C 60 18 135/59 L 95 10/26/19 04:00 37 C 64 20 126/63 95 10/25/19 23:00 36.9 C 70 20 135/64 96 10/25/19 22:20 69
--- NOTE | 2019-10-26 11:58 | Anesthesiology Consultation ---
Date of Service October 26, 2019 Assessment & Plan (1) Encounter for pre-operative examination: Chart Review Chart Review: Acceptable Risk for Surgery and Patient NOT seen in Pre Admission Testing Consults Requested none History Surgery Operation Date: 10/25/19 16:00 Proposed Procedures p Esophagogastroduodenoscopy Dr Esdras Renee Case, DO Operation Date: 10/26/19 16:30 Proposed Procedures p Colonoscopy Dr. Esdras Renee Case, DO Height/Weight Height: 5 ft 4 in Weight: 66.6 kg Allergies Allergy/AdvReac Type Severity Reaction Status Date / Time codeine AdvReac Mild Nausea/Vomi Verified 10/24/19 19:35 ting Medications Home Medications Medication Instructions Recorded Confirmed Last Taken acetaminophen 1,000 mg PO BID 10/24/19 10/24/19 Unknown ascorbic acid (vitamin C) [Vitamin See Rx Instructions .ROUTE .COMPLEX 10/24/19 10/24/19 Unknown C With Alana Hips] glucosamine-chondroitin [Osteo 1 tab PO BID 10/24/19 10/24/19 Unknown Bi-Flex] multivitamin 1 tab PO DAILY 10/24/19 10/24/19 Unknown omega 7-xgp-luh-fish oil [Fish Oil] 1 cap PO DAILY 10/24/19 10/24/19 Unknown NPO Date Last Intake of Fluids: 10/26/19 Time Last Intake of Fluids: 06:00 Last Intake of Fluids Comment: ice chips Date Last Intake of Solids: 10/25/19 Time Last Intake of Solids: 12:00 Last Intake of Solids Comment: apple sauce, yogurt Past Medical History Medical History Asthma Osteoporosis Prediabetes Social History Smoking Status: Never smoker Hx Alcohol Use: Yes Alcohol type: wine alcohol intake frequency: holidays/special occasions only Hx Substance Use: No Physical Exam Vital Signs Last Vital Signs Temp 36.8 C 10/26/19 11:50 Pulse 64 10/26/19 11:50 Resp 20 10/26/19 11:50 BP 163/64 H 10/26/19 11:50 Pulse Ox 99 10/26/19 11:50 Testing Laboratory Results 10/26/19 06:20 10/25/19 07:17 PT 10.9 Seconds (9.0-12.0) 10/24/19 18:34 INR 1.0 (0.9-1.1) 10/24/19: APTT 20.9 Seconds (21.0-31.0) L 10/24/19 Blood Type A Positive 10/24/19 Antibody Screen NEGATIVE 10/24/19
[2019-10-26] MEDS ORDERED: SODIUM CHLORIDE 0.9% 1000ML 1,000 ML IV SCH (12:00)
--- NOTE | 2019-10-26 12:00 | Gastroenterology Progress Note ---
Date of Service October 26, 2019 Assessment & Plan (1) Heme positive stool: (2) Chronic blood loss anemia: Proceed with colonoscopy Admission and Anticipated Discharge Date Admission Date: October 24, 2019 Subjective No overt GI bleeding last night. Tolerated bowel prep. She reports clear liquid stools following bowel prep. Physical Exam Constitutional: WD/WN, vitals as above Respiratory: normal respiratory effort, lungs clear to auscultation Cardiovascular: RRR, no murmur, no edema Gastrointestinal (Abdomen): normal bowel sounds, soft, nontender, no hepatosplenomegaly Results & Data Results & Data ([facility]) Vital Signs (Past 12 Hours) Vital Signs Temp Pulse Pulse Resp BP BP Pulse Ox 10/26/19 11:50 36.8 C 64 20 163/64 H 99 10/26/19 11:27 36.9 C 65 18 147/73 H 93 10/26/19 08:01 59 L 10/26/19 07:19 37.1 C 60 18 135/59 L 95 10/26/19 04:00 37 C 64 20 126/63 95 PG Care Time/CCT Total # of Minutes Spent Total Time Spent with Patient: Total time spent is greater than 50% in coordination of care (as documented) at patient's floor/unit and/or counseling patient: Coding Level of Care Code None Diagnoses Heme positive stool R19.5 Chronic blood loss anemia D50.0
[2019-10-26] MEDS ORDERED: LIDOCAINE HCL 2% 2 ML VIAL/AMP(20MG/ML) INFIL ONE (12:39)
[2019-10-26] MEDS ORDERED: PROPOFOL IV EMULSION 10 MG/ML 20 ML VIAL IV ONE (12:39)
--- NOTE | 2019-10-26 12:48 | Anesthesiology Progress Note ---
Date of Service October 26, 2019 Anesthesia Post Procedure Vital Signs Vital Signs: Temp Pulse Pulse Pulse Resp BP BP 10/26/19 12:33 57 L 16 10/26/19 11:50 36.8 C 64 20 10/26/19 11:27 36.9 C 65 18 147/73 H 10/26/19 08:01 59 L 10/26/19 07:19 37.1 C 60 18 135/59 L 10/26/19 04:00 37 C 64 20 126/63 10/25/19 23:00 36.9 C 70 20 135/64 10/25/19 22:20 69 10/25/19 18:45 36.5 C 64 18 159/75 H 10/25/19 18:19 36.7 C 68 20 131/72 10/25/19 17:43 36.7 C 70 20 146/68 H 10/25/19 17:35 37.1 C 70 18 153/74 H 10/25/19 17:23 37.1 C 61 18 134/70 10/25/19 17:21 37.1 C 61 18 134/70 10/25/19 15:00 64 10/25/19 14:11 36.7 C 66 18 152/75 H 10/25/19 14:10 36.9 C 86 18 127/66 10/25/19 13:50 36.9 C 73 18 128/67 10/25/19 13:25 36.9 C 65 18 137/68 10/25/19 13:04 36.5 C 71 18 144/71 H BP Pulse Ox 10/26/19 12:33 107/44 L 97 10/26/19 11:50 163/64 H 99 10/26/19 11:27 93 10/26/19 08:01 10/26/19 07:19 95 10/26/19 04:00 95 10/25/19 23:00 96 10/25/19 22:20 10/25/19 18:45 96 10/25/19 18:19 96 10/25/19 17:43 97 10/25/19 17:35 97 10/25/19 17:23 95 10/25/19 17:21 95 10/25/19 15:00 10/25/19 14:11 99 10/25/19 14:10 99 10/25/19 13:50 99 10/25/19 13:25 99 10/25/19 13:04 99 Transfer of Care Handoff Completed per policy Notes Mental Status: alert / awake / arousable Patient Amnestic to Procedure: Yes Nausea / Vomiting: adequately controlled Pain: adequately controlled Airway Patency, RR, SpO2: stable & adequate BP & HR: stable & adequate Hydration State: stable & adequate Anesthetic Complications: no major complications apparent and Pt Satisfied with anesthetic care
--- NOTE | 2019-10-26 13:00 | GI REPORT ---
Patient Name: Aleah Antonio Procedure Date: 10/26/2019 11:58 AM Date of : 1945 Admit Type: Inpatient Age: 74 Gender: Female Attending MD: Jay Dewitt DO Procedure: Colonoscopy Providers: Jay Dewitt DO Referring MD: Yohan Carlson Indications: Iron deficiency anemia secondary to chronic blood loss Medicines: Monitored Anesthesia Care Complications: No immediate complications. Estimated Blood Loss: Estimated blood loss: none. Procedure: Pre-Anesthesia Assessment: - Prior to the procedure, a History and Physical was performed, and patient medications and allergies were reviewed. The patient's tolerance of previous anesthesia was also reviewed. The risks and benefits of the procedure and the sedation options and risks were discussed with the patient. All questions were answered, and informed consent was obtained. Prior Anticoagulants: The patient has taken no previous anticoagulant or antiplatelet agents. ASA Grade Assessment: III - A patient with severe systemic disease. After reviewing the risks and benefits, the patient was deemed in satisfactory condition to undergo the procedure. After I obtained informed consent, the scope was passed under direct vision. Throughout the procedure, the patient's blood pressure, pulse, and oxygen saturations were monitored continuously. The scope was introduced through the anus and advanced to the cecum, identified by appendiceal orifice and ileocecal valve. The colonoscopy was performed without difficulty. The patient tolerated the procedure well. The quality of the bowel preparation was good. The ileocecal valve, appendiceal orifice, and rectum were photographed. Findings: The perianal and digital rectal examinations were normal. Two sessile polyps were found in the rectum. The polyps were 3 to 5 mm in size. These polyps were removed with a hot snare. Resection and retrieval were complete. Multiple small-mouthed diverticula were found in the sigmoid colon. Non-bleeding internal hemorrhoids were found during retroflexion. The hemorrhoids were small. Impression: - Two 3 to 5 mm polyps in the rectum, removed with a hot snare. Resected and retrieved. - Diverticulosis in the sigmoid colon. - Non-bleeding internal hemorrhoids. Recommendation: - [facility]. - Advance diet as tolerated. - Continue present medications. - Return to primary care physician as previously scheduled. Jay Dewitt DO 10/26/2019 12:59:29 PM This report has been signed electronically. Note Initiated On: 10/26/2019 11:58 AM Number of Addenda: 0 I attest to the content of the Intraoperative Record and orders documented therein, exceptions below {[id number]}
--- NOTE | 2019-10-26 14:55 | Discharge Summary ---
Date of Service October 26, 2019 Admission HPI Per Admitting Provider Aleah Antonio is a 74y/o F w/ PMH significant for asthma, and a h/o melanoma; presented to the ED after she having blood work completed by PCP earlier today that demonstrated a hemoglobin of 6. Over the last several months she has noted worsening shortness of breath, and increasingly easy fatigability; she first noticed this in June when she was forced to reduce the length of her regular treadmill walking workouts from 30-35 minute stretches to 15 minutes before she felt fatigued. This continued to progress over the following months but given concern for COVID-19 in the general public she avoided being seen at that time. Since August she has noticed that this has worsened to the point that she couldn't even make it to the mailbox without feeling short of breath. During these episodes she feels her heart racing, feels short of breath, and has a chest tightness that does not radiate. Additionally over the last two months has noticed that over the last two months she has episodically had loose dark stools; she first noticed these after she ate 6 apricots and then the next morning she had loose stools that were darker brown. She denies any visible blood in the toilet or on the toilet paper, or a black tarry nature to the stools. These stools will happen approximately every 5-10 days with the last episode happening approximately 6 days ago. Admission Exam Per Admitting Provider Constitutional: WD/WN, vitals as above Eyes: PERRL, conjunctivae normal, anicteric sclerae ENMT: external ear and nose normal, oropharynx normal Neck: normal visual inspection Respiratory: normal respiratory effort, lungs clear to auscultation Cardiovascular: Rate/Rhythm: regular rate and regular rhythm Heart Sounds: normal S1 and normal S2; no gallop, no murmur and no cardiac rub Vessels: no JVD Extremities: no edema Gastrointestinal (Abdomen): normal bowel sounds, soft, nontender, no hepatosplenomegaly Musculoskeletal: no cyanosis or clubbing, extremities motor strength 5/5 Skin: no rashes, warm and dry no jaundice Neurologic: patellar DTR's 2+ bilat, sensation intact CN's II-XI intact bilaterally Psychiatric: A+Ox3, euthymic affect Lymphatic: no cervical or axillary lymphadenopathy Principal Diagnosis GI bleed causing symptomatic anemia Discharge Exam Constitutional WD/WN, vitals as above Respiratory normal respiratory effort, lungs clear to auscultation Cardiovascular RRR, no murmur, no edema Gastrointestinal (Abdomen) normal bowel sounds, soft, nontender, no hepatosplenomegaly Skin no rashes, warm and dry Psychiatric A+Ox3, euthymic affect Discharge Data Allergies Allergy/AdvReac Type Severity Reaction Status Date / Time codeine AdvReac Mild Nausea/Vomi Verified 10/24/19 19:35 ting Consultations 10/24/19 19:36 ED Decision to Admit Stat 10/25/19 08:48 Consult Gastroenterology Routine Procedures Performed Operation Date: 10/25/19 16:00 Actual Procedures p EGD Dilatation - Jay Pate. Case, DO Operation Date: 10/26/19 16:30 Actual Procedures p Colonoscopy Polypectomy - Jay Renee Case, DO Hospital Course (1) Symptomatic anemia: Aleah Antonio is a 74y/o F w/ PMH significant for asthma, and a h/o melanoma; admitted for Hgb 6 with history suggestive of melanotic stools and positive hemoccult. Symptomatic anemia: - Stool occult this admission was positive for blood, and with subjective history of melanotic stools suggestive of GI bleed. - Hgb 5.8 on admission -> 10.4, improved appropriately with 4u PRBCs. Upon receiving blood products patient's symptoms of SOB, dizziness, weakness, fatigue went away. - Iron studies not completed prior to start of transfusions, however low Hgb with low MCV suggestive of chronic blood loss with possible element of iron deficiency. - Pt had EGD which showed mild Schatzki ring but no signs suggestive of a source of bleeding, CXR showing large hiatal hernia, and colonoscopy showing several small polyps that were removed but no clear source of bleeding. - Pt doing well and asymptomatic at this time; safe for discharge home. Will have video capsule endoscopy, GI will schedule an appointment for this. - Consider f/u CBC in one week to assess for stabilization of Hgb. - PPI started given Schatzki ring and hiatal hernia. Protonix 40mg daily. Dispo: home with self-care (2) Asthma: Total Time Total Time Spent Total Time Spent (In Minutes): see attending attestation Discharge Plan Discharge Items Patient Disposition: Home - Self-Care Reason For Visit: SYMPTOMATIC ANEMIA Discharge Diagnosis: GI bleed Activity: Per Instructions section Non-emergency contact: Primary Care Provider and Director Veterinary Call non-emergency contact if: your symptoms worsen and your temperature is above 101 Follow-up/Referrals: Jay Dewitt DO [Physician] - (His office will call you to schedule a follow up visit) Virgilio Carlson MD [Primary Care Provider] - Diet: Regular Addtl Attending Provider Instructions: You were admitted to the hospital for a low blood count. After receiving 4 units of blood, your blood counts came up appropriately and your symptoms of shortness of breath, dizziness started to improve. You had an EGD which did not show a source of bleeding but showed something called a Schatzki ring; these are common in people who have reflux. Sometimes when people have reflux of stomach acid they cannot feel it. You had a chest xray this admission which showed something called a hiatal hernia, a very common condition where the stomach pushes up on the chest cavity and can cause reflux as well. You had a colonoscopy which showed some benign polyps but no sources of bleeding. Because we could not visualize your small intestine and find a GI bleed, the GI doctor office will call you with an appointment for a video capsule endoscopy, a test where you swallow a small camera in order to see the small intestine. The GI doctor also recommended starting Protonix 40mg daily. This has been sent into [facility] on [facility]. If you begin to have sensation of shortness of breath, dizziness, feeling like you are going to pass out again, seek out urgent medical care. Please follow up with your primary care doctor; you will receive a call from his office to schedule an appointment. Pending Studies at Discharge: No Stand-Alone Forms: My [facility] [employer], Smoking Cessation Medications and DC Order Prescriptions: New pantoprazole 40 mg tablet,delayed release (DR/EC) 40 mg PO DAILY 28 Days Qty: 28 RF: 0 Continued multivitamin Tablet 1 tab PO DAILY RF: 0 ascorbic acid (vitamin C) [Vitamin C With Alana Hips] 1,000 mg Tablet See Rx Instructions .ROUTE .COMPLEX RF: 0 acetaminophen 500 mg Tablet 1,000 mg PO BID RF: 0 glucosamine-chondroitin [Osteo Bi-Flex] 250-200 mg Tablet 1 tab PO BID RF: 0 omega 5-zci-tzr-fish oil [Fish Oil] 1,000 mg (120 mg-180 mg) Capsule 1 cap PO DAILY RF: 0 Discharge Orders: Discharge Order (Routine); Ordered 10/26/19 Ordered By: Wendy Jacob Admission Data Admit Date/Time: 10/24/19 20:59 Attending Provider: Gely Salinas Admit Provider: Salomón Barraza Primary Care Provider: Virgilio Carlson Other Providers: Marianne Carroll ; Jay Dewitt Other Interventions: Discharge Summary Assessment (RN) Last Done: 10/26/19 15:18 DC Date/Time DO NOT enter until pt leaves facility: 10/26/19 17:34 Supervising Physician Co-Signing Physician Notes I personally examined the patient and verified all wall points of history and exam, discussed case, and agree with decision making with Dr. Booth with the following additions/exceptions: Pt feeling much improved since receiving PRBC transfusion. No further SOB with exertion, energy level is improved. Had EGD and colonoscopy without obvious source of bleeding. VSS NAD, AAOx3 RRR no mgr CTAB no wcr Abd +BS soft NT ND Ext no edema or calf tenderness Skin no rashes Labs and imaging, scope reports reviewed 74 yo female here with symptomatic microcytic anemia, Heme positive stool. Much improved s/p transfusion Needs capsule endoscopy as outpt Hemodynamically stable Given severe microcytosis and elevated RDW, most likely a chronic Fe-def anemia either from poor absorption vs GI blood loss as no evidence of chronic bleeding any other source on history. Stable for discharge to home I spent greater than 30 minutes coordinating the discharge Resident Activity Tracking Resident Involvement: Resident Care Provided Care Provided: Adult Hospital Medicine
[2019-10-26 15:31] VITALS: BP 139/73; PULSE 68; TEMP 98.1; O2SAT 96
--- NOTE | 2019-11-04 11:29 | Billing Data ---
Date of Service October 26, 2019 Coding Level of Care Code D/C Day Management >30 mins
== END 2019-10-26 17:34 | disposition home or self-care (01) | DRG 379 ==
LOC: ED 17:35 → 2N 20:59 → SUATTDRO 20:59 → 2N 21:30

== ENCOUNTER 2020-07-09 15:15 | Inpatient (IN) ==
[2020-07-09 16:13] LABS: Alanine Aminotransferase 21 U/L (12-78); Albumin Level 3.8 gm/dl (3.4-5.0); Aspartate Aminotransferase 11 U/L (15-37); BUN Creatinine Ratio 10.4 (10-20); Blood Urea Nitrogen 10 mg/dl (7-18); Calcium 9.3 mg/dl (8.5-10.1); Carbon Dioxide 25 mmol/L (21-32); Chloride 106 mmol/L (98-107); Creatinine Clr Calc Pharmacy 47.3 ml/min; Est GFR (African American) 69.3; Est GFR (Non-African American) 59.8; Glucose 114 mg/dl (70-99); Potassium 3.5 mmol/L (3.5-5.1); Sodium 139 mmol/L (136-145)
[2020-07-09] MEDS ORDERED: PANTOprazole 40 MG in SYRINGE 0 ML IV ONE (16:17)
[2020-07-09 16:18] LABS: Alkaline Phosphatase 70 U/L (45-117); Bilirubin,Total 0.3 mg/dl (0.2-1); Globulin 3.6 gm/dl (2.5-4.0); Total Protein 7.4 gm/dl (6.4-8.2); Troponin I < 0.015 ng/ml (0-0.045)
[2020-07-09 16:22] LABS: Hematocrit (blood only) 27.1 % (37-47); Hemoglobin 7.8 g/dL (12.0-16.0); Mean Corpuscular Hemoglobin 20.2 pg (25-34); Mean Corpuscular Hgb Conc 28.8 g/dL (32-36); Mean Corpuscular Volume 70.2 fL (80-100); Mean Platelet Volume 9.3 fL (7.4-10.4); Platelet Count 343 K/uL (130-400); RDW Coefficient of Variation 14.5 % (11.5-14.5); RDW Standard Deviation 36.9 fL (36.4-46.3); Red Blood Count 3.86 M/uL (4.2-5.4); White Blood Count 5.98 K/uL (4.8-10.8)
[2020-07-09 16:26] LABS: Basophils # (auto) 0.04 K/uL (0-0.2); Basophils % (auto) 0.7 %; Eosinophils # (auto) 0.11 K/uL (0-0.5); Eosinophils % (auto) 1.8 %; Hypochromasia Present; Immature Granulocytes # (auto) 0.03 K/uL (0.00-0.02); Immature Granulocytes % (auto) 0.5 %; Lymphocytes # (auto) 1.27 K/uL (1.2-3.4); Lymphocytes % (auto) 21.2 %; Microcytosis Present; Monocytes # (auto) 0.59 K/uL (0.11-0.59); Monocytes % (auto) 9.9 %; Neutrophils # (auto) 3.94 K/uL (1.4-6.5); Neutrophils % (auto) 65.9 %
--- NOTE | 2020-07-09 16:37 | Emergency Department Note ---
History of Present Illness General Chief complaint: GI Assessment Stated complaint: DIZZINESS, DARK STOOL Time Seen by Provider: 07/09/20 16:01 Source: patient Mode of arrival: ambulatory Limitations: no limitations History of Present Illness Provider complaint: Increased shortness of breath and fatigue with exertion, black stools Onset (ago): day(s) 2 Severity: similar to prior episodes Maximum Pain Intensity: 0 Relieved By: + none Associated symptoms: + malaise and + shortness of breath; no chest pain, no loss of appetite and no nausea/vomiting Treatments prior to arrival: none This is a 75-year-old female presents the emergency department with concern for black stools for 2 days and increased shortness of breath and fatigue with any exertion. Patient states last year she was found to be anemic and underwent both endoscopy and colonoscopy as well as follow-up capsule endoscopy and no source of bleeding was ever found. She states she received a transfusion of 4 units at that time. She states she did not have any other follow-up with GI due to the pandemic. Patient states she has seen her PCP in the interim and was told there were no new findings or changes. Patient states she had been doing well until she noticed black stools, no bright red blood, no clots. She states yesterday the stools were formed and black, and today it appeared more consistent with diarrhea and was black again. Patient has had some lower abdominal discomfort but denies overt pain with these episodes. Patient denies any history of reflux or heartburn. Patient denies any use of aspirin or NSAIDs, states she takes Tylenol daily for arthritis. Patient denies any other anticoagulation or antiplatelet therapy. Patient denies any change in medications or diet. Patient denies any trauma or injury. Patient denies any recent illness or known exposure to coronavirus. Pt seen during a time of high acuity and national emergency pandemic while wearing PPE. Home Medications Medication Instructions Recorded Confirmed Type acetaminophen 1,000 mg PO BID 10/24/19 07/09/20 History glucosamine-chondroitin [Osteo 1 tab PO BID 10/24/19 07/09/20 History Bi-Flex] multivitamin 1 tab PO DAILY 10/24/19 07/09/20 History omega 6-[id number]-qwb-fish oil [Fish Oil] 1 cap PO DAILY 10/24/19 07/09/20 History ascorbic acid (vitamin C) [Vitamin 0 mg PO DAILY 07/09/20 07/09/20 History C] ferrous sulfate 325 mg PO Q OTHER DAY #90 tab 07/11/20 Rx hydrocortisone acetate [Anusol-HC] 25 mg MT DAILY 14 Days ea 07/11/20 Rx Allergies Allergy/AdvReac Type Severity Reaction Status Date / Time codeine AdvReac Mild Nausea/Vomi Verified 07/09/20 16:54 ting Past Med/Surg History Medical History Asthma GI bleed Osteoporosis Prediabetes Social History Smoking Status: Former smoker Tobacco Type: Cigarettes Age Started Using Tobacco: 19; Age Quit Using Tobacco: 20; packs per day: 1; Years Smoked: 0.25; Hx Alcohol Use: Yes Alcohol type: wine Hx Substance Use: No Preferred Language: Kyrgyz Communication Ability: Effective Biztalk Consultant Required: No Beliefs That Will Affect Care: None Current Living Situation: Family Feels Safe at Home: Yes Assistive Devices: None Review of Systems See HPI for pertinent positives & negatives. and A total of 10 systems reviewed and were otherwise negative Physical Exam Vital Signs Vital Signs - 24 hr 07/09/20 15:23 07/09/20 16:16 07/09/20 18:06 Temperature 36.8 C Temperature Source Temporal Artery Scan Pulse Rate 98 H Pulse Rate [Exercises] Pulse Rate [Finger] 91 H 74 Respiratory Rate 20 16 18 Respiratory Rate [Exercises] Respiratory Effort / Characteristics Non-Labored Respiratory Depth Normal Blood Pressure 165/75 H Blood Pressure [Right Arm] 135/85 117/57 L Blood Pressure Mean 105 Blood Pressure Mean [Right Arm] 101 77 Pulse Oximetry 98 98 99 Pulse Oximetry [Exercises] Oxygen Delivery Method Room Air Sepsis Recent Fever Within 48 Hours No Sepsis New/Unexplained Change in Mental Status N/A Sepsis Action Taken by Nursing No Action Required 07/09/20 19:08 Temperature Temperature Source Pulse Rate Pulse Rate [Exercises] 92 H Pulse Rate [Finger] Respiratory Rate Respiratory Rate [Exercises] 16 Respiratory Effort / Characteristics Respiratory Depth Blood Pressure Blood Pressure [Right Arm] Blood Pressure Mean Blood Pressure Mean [Right Arm] Pulse Oximetry Pulse Oximetry [Exercises] 98 Oxygen Delivery Method Room Air Sepsis Recent Fever Within 48 Hours Sepsis New/Unexplained Change in Mental Status Sepsis Action Taken by Nursing GENERAL: alert, well appearing, well nourished, no distress, non-toxic EYE EXAM: normal conjunctiva, PERRL and EOM's grossly intact OROPHARYNX: no exudate, no erythema, lips, buccal mucosa, and tongue normal and mucous membranes are moist NECK: supple, no nuchal rigidity, no adenopathy, non-tender LUNGS: Clear to auscultation. Normal chest wall mechanics, no w/r/r HEART: no murmurs, S1 normal and S2 normal ABDOMEN: abdomen soft, non-tender, normo-active bowel sounds, no masses, no rebound or guarding. BACK: Back is symmetrical on inspection and there is no deformity, no midline tenderness, no CVA tenderness. SKIN: no rashes and no bruising UPPER EXTREMITIES: upper extremities are grossly normal. FROM, nml pulses b/l. LOWER EXTREMITIES: No pitting edema. FROM, nml pulses b/l. NEURO EXAM: Normal sensorium, cranial nerves II-XII grossly intact, normal speech, no gross weakness of arms, no gross weakness of legs. Gross sensation i ntact. Course Course 192: Patient updated on all results. Bedside BARB performed with CLAUDE Guzman software implementation specialist. Obvious hemorrhoids externally noted, no anal fissure, no thrombosed hemorrhoid, no obvious external bleeding. Minimal stool in the rectal vault, heme positive on guaiac testing. Administered Medications Discontinued Medications Acetaminophen (Acetaminophen 500 Mg Tab) 500 mg PO BID [facility] Stop: 08/09/20 08:59 Last Admin: 07/11/20 09:32 Dose: 500 mg Documented by: [id number] Admin: 07/10/20 20:09 Dose: 500 mg Documented by: [id number] Admin: 07/10/20 08:17 Dose: 500 mg Documented by: [id number] Ascorbic Acid (Ascorbic Acid 500 Mg Tab) 500 mg PO DAILY ASUNCION Stop: 08/09/20 08:59 Last Admin: 07/11/20 09:29 Dose: 500 mg Documented by: [id number] Admin: 07/10/20 08:17 Dose: 500 mg Documented by: [id number] Ferrous Sulfate (Ferrous Sulfate 325 Mg Tab) 325 mg PO QAM ASUNCION Stop: 08/09/20 08:59 Last Admin: 07/11/20 09:32 Dose: Not Given Documented by: [id number] Admin: 07/10/20 09:03 Dose: 325 mg Documented by: [id number] Fish Oil ([place]-3 (Purified Fish Oil) 1 Gm Cap) 1 gm PO DAILY ASUNCION Stop: 08/09/20 08:59 Last Admin: 07/11/20 09:28 Dose: 1 gm Documented by: [id number] Admin: 07/10/20 08:17 Dose: 1 gm Documented by: [id number] Glucosamine Sulfate (Glucosamine Sulfate 500 Mg Cap) 500 mg PO BID ASUNCION Stop: 08/08/20 22:29 Last Admin: 07/11/20 09:28 Dose: 500 mg Documented by: [id number] Admin: 07/10/20 20:10 Dose: 500 mg Documented by: [id number] Admin: 07/10/20 08:16 Dose: 500 mg Documented by: [id number] Admin: 07/09/20 23:28 Dose: 500 mg Documented by: [id number] Pantoprazole Sodium 40 mg/ (Syringe) 10 mls @ 5 mls/min IV NOW ONE Stop: 07/09/20 16:18 Last Admin: 07/09/20 16:47 Dose: 5 mls/min Documented by: [id number] Sodium Chloride (Nss 1000ml) 1,000 mls @ 125 mls/hr IV .Q8H ASUNCION Stop: 08/08/20 16:44 Last Infusion: 07/10/20 02:52 Dose: 0 mls/hr Documented by: [id number] Admin: 07/09/20 23:28 Dose: 125 mls/hr Documented by: [id number] Infusion: 07/09/20 23:28 Dose: 125 mls/hr Documented by: [id number] Admin: 07/09/20 16:48 Dose: 125 mls/hr Documented by: [id number] Famotidine 20 mg/ Syringe 5 mls @ 2.5 mls/min IV BID ASUNCION Stop: 08/08/20 22:18 Last Admin: 07/09/20 23:28 Dose: 2.5 mls/min Documented by: [id number] Potassium Chloride 20 meq/ (Sodium Chloride) 1,010 mls @ 125 mls/hr IV .Q8H5M ASUNCION Stop: 08/09/20 02:23 Last Admin: 07/10/20 02:58 Dose: Not Given Documented by: [id number] Potassium Chloride/Sodium Chloride (Normal Saline W/20 Meq Kcl) 20 meq in 1,000 mls @ 125 mls/hr IV .Q8H ASUNCION Stop: 08/09/20 02:44 Last Admin: 07/11/20 15:33 Dose: Not Given Documented by: [id number] Infusion: 07/11/20 15:33 Dose: 0 mls/hr Documented by: [id number] Infusion: 07/11/20 11:40 Dose: 0 mls/hr Documented by: [id number] Admin: 07/11/20 06:01 Dose: 125 mls/hr Documented by: [id number] Infusion: 07/11/20 04:09 Dose: 125 mls/hr Documented by: [id number] Admin: 07/10/20 20:09 Dose: 125 mls/hr Documented by: [id number] Infusion: 07/10/20 20:09 Dose: 125 mls/hr Documented by: [id number] Admin: 07/10/20 14:52 Dose: 125 mls/hr Documented by: [id number] Admin: 07/10/20 14:24 Dose: Not Given Documented by: [id number] Infusion: 07/10/20 10:58 Dose: 125 mls/hr Documented by: [id number] Infusion: 07/10/20 10:00 Dose: 125 mls/hr Documented by: [id number] Admin: 07/10/20 02:58 Dose: 125 mls/hr Documented by: [id number] Pantoprazole Sodium 40 mg/ (Syringe) 10 mls @ 5 mls/min IV BID ASUNCION Stop: 08/09/20 08:59 Last Admin: 07/11/20 09:29 Dose: 5 mls/min Documented by: [id number] Admin: 07/10/20 20:04 Dose: 5 mls/min Documented by: [id number] Admin: 07/10/20 09:03 Dose: 5 mls/min Documented by: [id number] Famotidine 20 mg/ Syringe 5 mls @ 2.5 mls/min IV BID ASUNCION Stop: 08/09/20 08:59 Last Admin: 07/11/20 09:28 Dose: 2.5 mls/min Documented by: [id number] Admin: 07/10/20 20:03 Dose: 2.5 mls/min Documented by: [id number] Admin: 07/10/20 09:03 Dose: 2.5 mls/min Documented by: [id number] Ioversol (Ioversol 100ml) 93 ml IV ONCE ONE Stop: 07/09/20 17:54 Last Admin: 07/09/20 17:53 Dose: 93 ml Documented by: [id number] Multivitamins (Multivitamin Tab) 1 tab PO DAILY ASUNCION Stop: 08/09/20 08:59 Last Admin: 07/11/20 09:29 Dose: 1 tab Documented by: [id number] Admin: 07/10/20 08:16 Dose: 1 tab Documented by: [id number] Polyethylene Glycol/Electrolytes (Lavage Solution 4000ml) 8 dose PO 0300,1800 ASUNCION Stop: 07/11/20 03:01 Last Admin: 07/11/20 03:11 Dose: Not Given Documented by: [id number] Admin: 07/10/20 18:30 Dose: 8 dose Documented by: [id number] Medical Decision Making Differential Diagnosis Differential diagnosis includes etiologies such as diverticulosis, AVM, coagulopathy, colitis, inflammatory bowel disease, malignancy, Genesis-Moses tear, esophagitis, peptic ulcer disease, variceal bleed, gastritis, epistaxis, fissure, hemorrhoids, as well as others were entertained. Medical Records Attestation: I reviewed the patient's medical records. Home Medications Current Medication List: was personally reviewed by me Laboratory Data Attestation: I reviewed the patient's lab results. Result diagrams: 07/11/20 14:47 07/11/20 02:23 Lab Results 07/09/20 07/09/20 07/09/20 Range/Units 15:45 15:45 16:35 WBC 5.98 (4.8-10.8) K/uL RBC 3.86 L (4.2-5.4) M/uL Hgb 7.8 L (12.0-16.0) g/dL Hct 27.1 L (37-47) % MCV 70.2 L (80-100) fL MCH 20.2 L (25-34) pg MCHC 28.8 L (32-36) g/dL RDW Std Deviation 36.9 (36.4-46.3) fL RDW Coeff of [place] 14.5 (11.5-14.5) % Plt Count 343 (130-400) K/uL MPV 9.3 (7.4-10.4) fL Immature Gran % (Auto) 0.5 % Neut % (Auto) 65.9 % Lymph % (Auto) 21.2 % [place] % (Auto) 9.9 % Eos % (Auto) 1.8 % Baso % (Auto) 0.7 % Neut # (Auto) 3.94 (1.4-6.5) K/uL Lymph # (Auto) 1.27 (1.2-3.4) K/uL [place] # (Auto) 0.59 (0.11-0.59) K/uL Eos # (Auto) 0.11 (0-0.5) K/uL Baso # (Auto) 0.04 (0-0.2) K/uL Immature Gran # (Auto) 0.03 H (0.00-0.02) K/uL Hypochromasia Present Microcytosis Present PT (9.0-12.0) Seconds INR (0.9-1.1) Sodium 139 (136-145) mmol/L Potassium 3.5 (3.5-5.1) mmol/L Chloride 106 (98-107) mmol/L Carbon Dioxide 25 (21-32) mmol/L Anion Gap 9.0 (3-11) BUN 10 (7-18) mg/dl Creatinine 0.94 (0.6-1.2) mg/dl Est Cr Clr Drug Dosing 47.3 ml/min Est GFR ( Amer) 69.3 Est GFR (Non-Af Amer) 59.8 BUN/Creatinine Ratio 10.4 (10-20) Glucose 114 H (70-99) mg/dl Calcium 9.3 (8.5-10.1) mg/dl Magnesium 2.1 (1.8-2.4) mg/dl Total Bilirubin 0.3 (0.2-1) mg/dl AST 11 L (15-37) U/L ALT 21 (12-78) U/L Alkaline Phosphatase 70 (45-117) U/L Troponin I < 0.015 (0-0.045) ng/ml NT-Pro-B Natriuret Pep 129 (0-900) pg/ml Total Protein 7.4 (6.4-8.2) gm/dl Albumin 3.8 (3.4-5.0) gm/dl Globulin 3.6 (2.5-4.0) gm/dl Albumin/Globulin Ratio 1.0 (0.9-2) Lipase 244 (73-393) U/L Urine Color Urine Appearance (Clear) Urine pH (4.5-7.5) Ur Specific [place] (1.000-1.030) Urine Protein (Negative) Urine Glucose (UA) (Negative) Urine Ketones (Negative) Urine Blood (Negative) Urine Nitrite (Negative) Urine Bilirubin (Negative) Urine Urobilinogen (Negative) Ur Leukocyte Esterase (Negative) Urine WBC (Auto) (0-5) /hpf Urine RBC (Auto) (0-4) /hpf U Hyaline Cast (Auto) (0-5) /lpf U Epithel Cells (Auto) (0-5) /lpf Urine Bacteria (Auto) (Negative) COVID-19 Eval Order SARS-CoV-2, RNA, NAAT (NEGATIVE) Blood Type A Positive Antibody Screen NEGATIVE Crossmatch See Detail 07/09/20 07/09/20 07/09/20 Range/Units 16:41 19:30 19:30 WBC (4.8-10.8) K/uL RBC (4.2-5.4) M/uL Hgb (12.0-16.0) g/dL Hct (37-47) % MCV (80-100) fL MCH (25-34) pg MCHC (32-36) g/dL RDW Std Deviation (36.4-46.3) fL RDW Coeff of [place] (11.5-14.5) % Plt Count (130-400) K/uL MPV (7.4-10.4) fL Immature Gran % (Auto) % Neut % (Auto) % Lymph % (Auto) % [place] % (Auto) % Eos % (Auto) % Baso % (Auto) % Neut # (Auto) (1.4-6.5) K/uL Lymph # (Auto) (1.2-3.4) K/uL [place] # (Auto) (0.11-0.59) K/uL Eos # (Auto) (0-0.5) K/uL Baso # (Auto) (0-0.2) K/uL Immature Gran # (Auto) (0.00-0.02) K/uL Hypochromasia Microcytosis PT 10.3 (9.0-12.0) Seconds INR 1.0 (0.9-1.1) Sodium (136-145) mmol/L Potassium (3.5-5.1) mmol/L Chloride (98-107) mmol/L Carbon Dioxide (21-32) mmol/L Anion Gap (3-11) BUN (7-18) mg/dl Creatinine (0.6-1.2) mg/dl Est Cr Clr Drug Dosing ml/min Est GFR ( Amer) Est GFR (Non-Af Amer) BUN/Creatinine Ratio (10-20) Glucose (70-99) mg/dl Calcium (8.5-10.1) mg/dl Magnesium (1.8-2.4) mg/dl Total Bilirubin (0.2-1) mg/dl AST (15-37) U/L ALT (12-78) U/L Alkaline Phosphatase (45-117) U/L Troponin I (0-0.045) ng/ml NT-Pro-B Natriuret Pep (0-900) pg/ml Total Protein (6.4-8.2) gm/dl Albumin (3.4-5.0) gm/dl Globulin (2.5-4.0) gm/dl Albumin/Globulin Ratio (0.9-2) Lipase (73-393) U/L Urine Color Urine Appearance (Clear) Urine pH (4.5-7.5) Ur Specific [place] (1.000-1.030) Urine Protein (Negative) Urine Glucose (UA) (Negative) Urine Ketones (Negative) Urine Blood (Negative) Urine Nitrite (Negative) Urine Bilirubin (Negative) Urine Urobilinogen (Negative) Ur Leukocyte Esterase (Negative) Urine WBC (Auto) (0-5) /hpf Urine RBC (Auto) (0-4) /hpf U Hyaline Cast (Auto) (0-5) /lpf U Epithel Cells (Auto) (0-5) /lpf Urine Bacteria (Auto) (Negative) COVID-19 Eval Order Covid19 IDNow [facility] SARS-CoV-2, RNA, NAAT NEGATIVE (NEGATIVE) Blood Type Antibody Screen Crossmatch 07/09/20 07/10/20 07/10/20 Range/Units 23:25 06:06 06:06 WBC 5.08 (4.8-10.8) K/uL RBC 3.17 L (4.2-5.4) M/uL Hgb 6.2 L* (12.0-16.0) g/dL Hct 22.0 L (37-47) % MCV 69.4 L (80-100) fL MCH 19.6 L (25-34) pg MCHC 28.2 L (32-36) g/dL RDW Std Deviation 37.3 (36.4-46.3) fL RDW Coeff of [place] 14.5 (11.5-14.5) % Plt Count 262 (130-400) K/uL MPV 9.3 (7.4-10.4) fL Immature Gran % (Auto) 0.4 % Neut % (Auto) 53.8 % Lymph % (Auto) 34.3 % [place] % (Auto) 8.1 % Eos % (Auto) 2.8 % Baso % (Auto) 0.6 % Neut # (Auto) 2.74 (1.4-6.5) K/uL Lymph # (Auto) 1.74 (1.2-3.4) K/uL [place] # (Auto) 0.41 (0.11-0.59) K/uL Eos # (Auto) 0.14 (0-0.5) K/uL Baso # (Auto) 0.03 (0-0.2) K/uL Immature Gran # (Auto) 0.02 (0.00-0.02) K/uL Hypochromasia Microcytosis Present PT (9.0-12.0) Seconds INR (0.9-1.1) Sodium 146 H D (136-145) mmol/L Potassium 3.9 (3.5-5.1) mmol/L Chloride 115 H (98-107) mmol/L Carbon Dioxide 24 (21-32) mmol/L Anion Gap 7.0 (3-11) BUN 7 (7-18) mg/dl Creatinine 0.72 (0.6-1.2) mg/dl Est Cr Clr Drug Dosing 60.8 ml/min Est GFR ( Amer) 95.6 Est GFR (Non-Af Amer) 82.5 BUN/Creatinine Ratio 10.3 (10-20) Glucose 96 (70-99) mg/dl Calcium 7.9 L D (8.5-10.1) mg/dl Magnesium (1.8-2.4) mg/dl Total Bilirubin (0.2-1) mg/dl AST (15-37) U/L ALT (12-78) U/L Alkaline Phosphatase (45-117) U/L Troponin I (0-0.045) ng/ml NT-Pro-B Natriuret Pep (0-900) pg/ml Total Protein (6.4-8.2) gm/dl Albumin (3.4-5.0) gm/dl Globulin (2.5-4.0) gm/dl Albumin/Globulin Ratio (0.9-2) Lipase (73-393) U/L Urine Color Yellow Urine Appearance Clear (Clear) Urine pH 5.0 (4.5-7.5) Ur Specific [place] > 1.045 H (1.000-1.030) Urine Protein Negative (Negative) Urine Glucose (UA) Negative (Negative) Urine Ketones Negative (Negative) Urine Blood Negative (Negative) Urine Nitrite Negative (Negative) Urine Bilirubin Negative (Negative) Urine Urobilinogen Negative (Negative) Ur Leukocyte Esterase 1+ H (Negative) Urine WBC (Auto) 5-10 H (0-5) /hpf Urine RBC (Auto) 0-4 (0-4) /hpf U Hyaline Cast (Auto) 0 (0-5) /lpf U Epithel Cells (Auto) 5-10 H (0-5) /lpf Urine Bacteria (Auto) Negative (Negative) COVID-19 Eval Order SARS-CoV-2, RNA, NAAT (NEGATIVE) Blood Type Antibody Screen Crossmatch 07/10/20 Range/Units 15:32 WBC (4.8-10.8) K/uL RBC (4.2-5.4) M/uL Hgb 9.0 L (12.0-16.0) g/dL Hct 29.3 L (37-47) % MCV (80-100) fL MCH (25-34) pg MCHC (32-36) g/dL RDW Std Deviation (36.4-46.3) fL RDW Coeff of [place] (11.5-14.5) % Plt Count (130-400) K/uL MPV (7.4-10.4) fL Immature Gran % (Auto) % Neut % (Auto) % Lymph % (Auto) % [place] % (Auto) % Eos % (Auto) % Baso % (Auto) % Neut # (Auto) (1.4-6.5) K/uL Lymph # (Auto) (1.2-3.4) K/uL [place] # (Auto) (0.11-0.59) K/uL Eos # (Auto) (0-0.5) K/uL Baso # (Auto) (0-0.2) K/uL Immature Gran # (Auto) (0.00-0.02) K/uL Hypochromasia Microcytosis PT (9.0-12.0) Seconds INR (0.9-1.1) Sodium (136-145) mmol/L Potassium (3.5-5.1) mmol/L Chloride (98-107) mmol/L Carbon Dioxide (21-32) mmol/L Anion Gap (3-11) BUN (7-18) mg/dl Creatinine (0.6-1.2) mg/dl Est Cr Clr Drug Dosing ml/min Est GFR ( Amer) Est GFR (Non-Af Amer) BUN/Creatinine Ratio (10-20) Glucose (70-99) mg/dl Calcium (8.5-10.1) mg/dl Magnesium (1.8-2.4) mg/dl Total Bilirubin (0.2-1) mg/dl AST (15-37) U/L ALT (12-78) U/L Alkaline Phosphatase (45-117) U/L Troponin I (0-0.045) ng/ml NT-Pro-B Natriuret Pep (0-900) pg/ml Total Protein (6.4-8.2) gm/dl Albumin (3.4-5.0) gm/dl Globulin (2.5-4.0) gm/dl Albumin/Globulin Ratio (0.9-2) Lipase (73-393) U/L Urine Color Urine Appearance (Clear) Urine pH (4.5-7.5) Ur Specific [place] (1.000-1.030) Urine Protein (Negative) Urine Glucose (UA) (Negative) Urine Ketones (Negative) Urine Blood (Negative) Urine Nitrite (Negative) Urine Bilirubin (Negative) Urine Urobilinogen (Negative) Ur Leukocyte Esterase (Negative) Urine WBC (Auto) (0-5) /hpf Urine RBC (Auto) (0-4) /hpf U Hyaline Cast (Auto) (0-5) /lpf U Epithel Cells (Auto) (0-5) /lpf Urine Bacteria (Auto) (Negative) COVID-19 Eval Order SARS-CoV-2, RNA, NAAT (NEGATIVE) Blood Type Antibody Screen Crossmatch Imaging Data Radiologist's Impression: CT SCAN OF THE ABDOMEN AND PELVIS WITH IV CONTRAST CLINICAL HISTORY: Generalized abdominal pain. GI bleeding. Anemia. COMPARISON STUDY: No priors. TECHNIQUE: Following the IV administration of 93 cc of Optiray 320, CT scan of the abdomen and pelvis is performed from the lung bases to the proximal femora. Images are reviewed in the axial, sagittal, and coronal planes. IV contrast was administered without complication. A dose lowering technique was utilized adhering to the principles of ALARA. CT DOSE: 457.70 mGy.cm FINDINGS: Lung bases: The heart is normal in size and without pericardial effusion. A fat- containing Bochdalek hernia is seen at the left lung base. There is no airspace consolidation or pleural effusion. There is bibasilar scarring/atelectasis. There is a moderate to large hiatal hernia. Liver: The contrast-enhanced liver is normal in size, contour, and attenuation. There is no intrahepatic biliary ductal dilatation. The hepatic veins and portal veins are patent. Gallbladder: There is a contracted gallbladder versus cystic duct remnant present in the gallbladder fossa. Small foci of gas versus gas containing gallstones are present within the cystic duct. Spleen: Normal in size and attenuation. Pancreas: Moderately atrophic and grossly unremarkable. Adrenal glands: Unremarkable. Kidneys: The contrast enhanced kidneys demonstrate cortical atrophy and are without hydronephrosis. Peripelvic cysts are noted on the left. A 1.1 cm subcentimeter cortical cyst is seen in the left lower pole. The kidneys enhance symmetrically. Abdominal vasculature: The abdominal aorta is normal in course and caliber noting moderate atherosclerotic calcification. Bowel: There is mild to moderate sigmoid diverticulosis without CT evidence of acute diverticulitis. No bowel obstruction is seen. The appendix is well- visualized and normal. Peritoneum: There is no intraperitoneal free air or abdominal ascites. Lymphadenopathy: None. Pelvic viscera: The bladder is normal as visualized. The uterus is surgically absent. Tiny simple cystic foci in the left ovary measures up to 1.4 cm. Skeletal structures: The skeletal structures are osteopenic. There is mild to moderate lumbosacral spondylosis. No lytic or blastic lesions are seen. IMPRESSION: 1. No acute infectious or inflammatory findings identified in the abdomen or pelvis. 2. Moderate to large hiatal hernia. 3. Mild to moderate sigmoid diverticulosis without CT evidence of acute diverticulitis. 4. A contracted gallbladder versus a cystic duct remnant is present within the gallbladder fossa. There are small foci of gas versus gas containing gallstones within the cystic duct. This is of indeterminant significance and clinical correlation will be essential. 5. Additional findings as above. ACT 112: Negative or not required by law. Electronically signed by: Romain Gaffney M.D. 07/09/2020 6:08 PM ECG Data Attestation: I personally reviewed and interpreted this ECG as follows: Indication: + SOB/dyspnea Rate (beats per minute): 87 Rhythm: + normal sinus ECG Intervals/blocks: + Normal QRS and + Normal QT ECG [place]: + Normal ECG ST segments: + Normal ST segments MDM Narrative This is a 75-year-old female who presents due to concern for increased fatigue and shortness of breath with exertion as well as recent black stools. Patient does have a prior history of GI bleed requiring transfusions, EGD, colonoscopy, and capsule endoscopy. Patient denies any use of aspirin or NSAIDs, denies any anticoagulation. Patient well-appearing at bedside and hemodynamically stable. Patient's first H&H 3 g lower than last summer. Given recent melena noted, I assume this is likely acute. Patient with no history of gastritis or peptic ulcer disease on EGD, although there is mention of hiatal hernia. Patient denied any recent GERD/reflux type symptoms. Patient was given 1 dose of Protonix as a precaution. No significant elevation to the patient's BUN. Patient was heme positive on bedside BARB. Patient made aware of all results and due to concern for ongoing bleeding of unclear etiology at this time, case discussed with hospitalist for additional evaluation and management. I did not feel she need emergent blood transfusion at this time. If patient has further melena or becomes more symptomatic, patient may need more emergent transfusion or repeat H&H. An order was placed for continuous cardiac monitoring. The monitor shows a rate of _80_ with _normal sinus_ rhythm. Impression & Plan Acute GI bleeding, Symptomatic anemia Discharge Plan Visit Data Chief Complaint: GI Assessment Stated Complaint: DIZZINESS, DARK STOOL ED Provider: Ashley Mcleod Discharge Problem: Acute GI bleeding, Symptomatic anemia Patient Disposition: Admitted As Inpatient Discharge Instructions Interventions: ED Discharge Assessment Last Done: 07/09/20 21:53
[2020-07-09 16:44] LABS: Lipase 244 U/L (73-393); Magnesium 2.1 mg/dl (1.8-2.4); NT Pro B Type Natriuretic Pept 129 pg/ml (0-900)
[2020-07-09] MEDS: SODIUM CHLORIDE 0.9% 1000ML 1,000 ML IV SCH ×2 (16:48→23:28)
--- NOTE | 2020-07-09 16:57 | XRay Report ---
SINGLE VIEW CHEST CLINICAL HISTORY: Generalized weakness. FINDINGS: An AP, portable, upright chest radiograph is compared to study dated 10/24/2019. There is a large hiatal hernia. The cardiomediastinal silhouette is unremarkable. The lungs and pleural spaces a re clear. No pneumothorax is seen. The skeletal structures are osteopenic. The bony thorax is grossly intact. IMPRESSION: 1. No active disease in the chest. 2. Hiatal hernia. ACT 112: Negative or not required by law. Electronically signed by: Romain Gaffney M.D. 07/09/2020 4:55 PM
[2020-07-09] MEDS ORDERED: IOVERSOL 100ml IV ONE (17:53)
--- NOTE | 2020-07-09 18:10 | CT Scan Report ---
CT SCAN OF THE ABDOMEN AND PELVIS WITH IV CONTRAST CLINICAL HISTORY: Generalized abdominal pain. GI bleeding. Anemia. COMPARISON STUDY: No priors. TECHNIQUE: Following the IV administration of 93 cc of Optiray 320, CT scan of the abdomen and pelvi s is performed from the lung bases to the proximal femora. Images are reviewed in the axial, sagittal , and coronal planes. IV contrast was administered without complication. A dose lowering technique wa s utilized adhering to the principles of ALARA. CT DOSE: 457.70 mGy.cm FINDINGS: Lung bases: The heart is normal in size and without pericardial effusion. A fat-containing Bochdalek hernia is seen at the left lung base. There is no airspace consolidation or pleural effusion. There i s bibasilar scarring/atelectasis. There is a moderate to large hiatal hernia. Liver: The contrast-enhanced liver is normal in size, contour, and attenuation. There is no intrahepa tic biliary ductal dilatation. The hepatic veins and portal veins are patent. Gallbladder: There is a contracted gallbladder versus cystic duct remnant present in the gallbladder fossa. Small foci of gas versus gas containing gallstones are present within the cystic duct. Spleen: Normal in size and attenuation. Pancreas: Moderately atrophic and grossly unremarkable. Adrenal glands: Unremarkable. Kidneys: The contrast enhanced kidneys demonstrate cortical atrophy and are without hydronephrosis. P eripelvic cysts are noted on the left. A 1.1 cm subcentimeter cortical cyst is seen in the left lower pole. The kidneys enhance symmetrically. Abdominal vasculature: The abdominal aorta is normal in course and caliber noting moderate atheroscle rotic calcification. Bowel: There is mild to moderate sigmoid diverticulosis without CT evidence of acute diverticulitis. No bowel obstruction is seen. The appendix is well-visualized and normal. Peritoneum: There is no intraperitoneal free air or abdominal ascites. Lymphadenopathy: None. Pelvic viscera: The bladder is normal as visualized. The uterus is surgically absent. Tiny simple cys tic foci in the left ovary measures up to 1.4 cm. Skeletal structures: The skeletal structures are osteopenic. There is mild to moderate lumbosacral sp ondylosis. No lytic or blastic lesions are seen. IMPRESSION: 1. No acute infectious or inflammatory findings identified in the abdomen or pelvis. 2. Moderate to large hiatal hernia. 3. Mild to moderate sigmoid diverticulosis without CT evidence of acute diverticulitis. 4. A contracted gallbladder versus a cystic duct remnant is present within the gallbladder fossa. The re are small foci of gas versus gas containing gallstones within the cystic duct. This is of indeterm inant significance and clinical correlation will be essential. 5. Additional findings as above. ACT 112: Negative or not required by law. Electronically signed by: Romain Gaffney M.D. 07/09/2020 6:08 PM
[2020-07-09 20:03] LABS: Prothrombin Time 10.3 Seconds (9.0-12.0)
--- NOTE | 2020-07-09 21:25 | History & Physical Report ---
Date of Service July 09, 2020 Assessment & Plan (1) Acute GI bleedin-year-old female past medical history significant for admission October 2019 for symptomatic anemia secondary to GIB presents for similar complaints of lightheadedness and black tarry stools. Acute GI bleeding with symptomatic anemia: As noted above, patient has a history of symptomatic anemia secondary to acute GI bleed in October 2019. Evaluation with EGD, colonoscopy, capsule endoscopy negative for sources of acute bleeding. Patient was started on Protonix 40mg p.o. daily by Dr. Dewitt for possible PUD, which the patient has not been taking for several months. Suspect PUD as most likely cause given patient was having reflux symptoms without Protonix use and had similar complaints in the past. Patient does have hemorrhoids, however this history is known and patient does not endorse BRBPR. No bright red blood on rectal exam. Stool heme positive. Hemoglobin on admission 7.8. Repeat CBC a.m. Patient ambulated with nursing staff after receiving 1L NSS bolus and did not have any symptoms of dizziness, lightheadedness, weakness. Will defer blood products at this time given no longer symptomatic, with repeat CBC in a.m. N.p.o. overnight for possible GI intervention tomorrow a.m. GI consult placed. NSS with KCl 20 meq @125 mL/hr. IV Protonix is on backorder. Protonix p.o. twice daily. Daily iron supplement added. CODE STATUS: Conditional code. Patient does not desire intubation or invasive airway techniques. Does desire CPR/defibrillation if appropriate. FEN GI:NPO, NSS with KCl 20 meq @125 mL/hr. DVT prophylaxis: Holding chemoprophylaxis in the setting of acute GI bleed. SCDs. Dispo: MedSurg with telemetry for continuous cardiac monitoring in the setting of upper GI bleed with anemia. GI consult in a.m. (2) Chronic blood loss anemia: History of Present Illness Chief Complaint: Black tarry stools Primary Care Provider: Virgilio Carlson MD 75-year-old female past medical history significant for anemia secondary to GI bleed in October 2019 presents for 2 days of black tarry stools with some associated lightheadedness with activity, without shortness of breath, chest pain, abdominal pain, nausea or vomiting, dizziness. Of note patient was admitted in October 2019 for similar presentation, did have EGD and colonoscopy, as well as capsule endoscopy for small bowel visualization approximately 2 weeks following discharge without any identifiable cause of bleeding. Schatzki ring and hiatal hernia noted on EGD at that time. Per notes by Dr. Dewitt, patient was to be on Protonix 40 mg daily, however the patient reports that after receiving this medication in the hospital she had no further refills and was not sure how to call to get it refilled therefore has not been taking it for at least 6 months. Patient noticed that after stopping Protonix, she started having more burping and gas, but no "heartburn". No recent sick contacts. No fevers. Allergies Allergy/AdvReac Type Severity Reaction Status Date / Time codeine AdvReac Mild Nausea/Vomi Verified 07/09/20 16:54 ting Home Medications Medication Instructions Recorded Confirmed Type acetaminophen 1,000 mg PO BID 10/24/19 07/09/20 History glucosamine-chondroitin [Osteo 1 tab PO BID 10/24/19 07/09/20 History Bi-Flex] multivitamin 1 tab PO DAILY 10/24/19 07/09/20 History omega 1-vqm-zbt-fish oil [Fish Oil] 1 cap PO DAILY 10/24/19 07/09/20 History ascorbic acid (vitamin C) [Vitamin 0 mg PO DAILY 07/09/20 07/09/20 History C] Past Med/Surg History Medical History Asthma GI bleed Osteoporosis Prediabetes Social History Smoking Status: Former smoker Tobacco Type: Cigarettes Age Started Using Tobacco: 19; Age Quit Using Tobacco: 20; packs per day: 1; Years Smoked: 0.25; Smoking End Date: quit at 20 yo; Hx Alcohol Use: Yes Alcohol type: wine Hx Substance Use: No Preferred Language: Belgian Communication Ability: Effective Vacation Sales Advisor Required: No Beliefs That Will Affect Care: None Current Living Situation: Family Other Information That Helps Us Care for You: No Feels Safe at Home: Yes Safety Concerns: Feels Safe At This Time Assistive Devices: Glasses Review of Systems Review of Systems: All systems reviewed & are unremarkable except as noted in HPI & below Constitutional: no fever, no chills and no malaise Respiratory: no cough and no dyspnea Cardiovascular: no chest pain, no palpitations and no edema Gastrointestinal: + diarrhea/loose stools; no abdominal pain and no constipation Genitourinary: no dysuria and no hematuria Physical Exam Constitutional: WD/WN, vitals as above Eyes: PERRL, conjunctivae normal, anicteric sclerae ENMT: external ear and nose normal, oropharynx normal Neck: normal visual inspection Respiratory: normal respiratory effort, lungs clear to auscultation Cardiovascular: RRR, no murmur, no edema Gastrointestinal (Abdomen): normal bowel sounds, soft, nontender, no hepatosplenomegaly Musculoskeletal: no cyanosis or clubbing, extremities motor strength 5/5 Skin: no rashes, warm and dry Neurologic: Sensory and motor exams grossly normal Psychiatric: A+Ox3, euthymic affect Results & Data Results & Data ([facility]) Vital Signs (Past 12 Hours) Vital Signs Temp Pulse Pulse Pulse Resp Resp BP 07/09/20 19:30 77 17 136/79 07/09/20 19:08 92 H 16 07/09/20 19:04 86 18 154/60 H 07/09/20 18:06 74 18 07/09/20 16:16 91 H 16 07/09/20 15:23 36.8 C 98 H 20 165/75 H BP Pulse Ox Pulse Ox 07/09/20 19:30 99 07/09/20 19:08 98 07/09/20 19:04 99 07/09/20 18:06 117/57 L 99 07/09/20 16:16 135/85 98 07/09/20 15:23 98 Code Status & VTE Plan VTE Prophylaxis Plan VTE Prophylaxis will be ordered: Yes Supervising Physician Co-Signing Physician Notes Attending addendum: I have physically seen this patient, have supervised the medical residents activities, and agree with the H&P unless as otherwise noted. Assessment and Plan: Acute GI bleed/symptomatic anemia- Hb 7.8 upon admission Previous workup including EGD, colonscopy and capsule endoscopy Consult her Torque Tester Dr. Dewitt NPO except meds. NSS + KCL 20 MEQ at 125mls/hr H/H q6h Pantoprazole 40mg po bid famotidine 20mg IV q12h Remaining orders and notations as noted Resident Activity Tracking Resident Involvement: Resident Care Provided Care Provided: Adult [facility]
[2020-07-09] MEDS ORDERED: ONDANSETRON INJ 2 MG/ML 2 ML VIAL IV PRN (22:19)
[2020-07-09] MEDS ORDERED: FAMOTIDINE 20 MG in SYRINGE 3 ML IV SCH (22:19)
[2020-07-09] MEDS: GLUCOSAMINE SULFATE 500 MG CAP PO SCH (23:28)
[2020-07-09 23:39] LABS: Appearance Urine Clear (Clear); Bacteria Urine Automated Negative (Negative); Bilirubin Urine Negative (Negative); Blood Urine Negative (Negative); Cast Urine Automated 0 /lpf (0-5); Color Urine Yellow; Glucose Urine UA Negative (Negative); Ketones Urine Negative (Negative); Leukocyte Esterase Urine 1+ (Negative); Nitrite Urine Negative (Negative); Protein Urine Negative (Negative); RBC Urine Automated 0-4 /hpf (0-4); Specific Gravity Urine > 1.045 (1.000-1.030); Urobilinogen Urine Negative (Negative)
[2020-07-10] MEDS ORDERED: POTASSIUM CHLORIDE 20 MEQ in SODIUM CHLORIDE 0.9% 1000ML 1,000 ML IV SCH (02:24)
[2020-07-10] MEDS: NSS + 20MEQ KCL 20 MEQ/1,000 ML BAG IV SCH ×4 (02:58→20:09)
[2020-07-10 06:49] LABS: Hemoglobin 6.2 g/dL (12.0-16.0); Mean Corpuscular Hemoglobin 19.6 pg (25-34); Mean Corpuscular Hgb Conc 28.2 g/dL (32-36); Mean Corpuscular Volume 69.4 fL (80-100); Mean Platelet Volume 9.3 fL (7.4-10.4); Platelet Count 262 K/uL (130-400); RDW Coefficient of Variation 14.5 % (11.5-14.5); RDW Standard Deviation 37.3 fL (36.4-46.3); Red Blood Count 3.17 M/uL (4.2-5.4); White Blood Count 5.08 K/uL (4.8-10.8)
[2020-07-10 07:00] LABS: Basophils # (auto) 0.03 K/uL (0-0.2); Basophils % (auto) 0.6 %; Eosinophils # (auto) 0.14 K/uL (0-0.5); Eosinophils % (auto) 2.8 %; Immature Granulocytes # (auto) 0.02 K/uL (0.00-0.02); Immature Granulocytes % (auto) 0.4 %; Lymphocytes # (auto) 1.74 K/uL (1.2-3.4); Lymphocytes % (auto) 34.3 %; Microcytosis Present; Monocytes # (auto) 0.41 K/uL (0.11-0.59); Monocytes % (auto) 8.1 %; Neutrophils # (auto) 2.74 K/uL (1.4-6.5); Neutrophils % (auto) 53.8 %
[2020-07-10 07:13] LABS: BUN Creatinine Ratio 10.3 (10-20); Calcium 7.9 mg/dl (8.5-10.1); Creatinine Clr Calc Pharmacy 60.8 ml/min; Est GFR (African American) 95.6; Est GFR (Non-African American) 82.5; Potassium 3.9 mmol/L (3.5-5.1)
[2020-07-10] MEDS ORDERED: SODIUM CHLORIDE 0.9% 250 ML IV PRN (07:56)
[2020-07-10] MEDS: MULTIVITAMIN TAB PO SCH (08:16)
[2020-07-10] MEDS: GLUCOSAMINE SULFATE 500 MG CAP PO SCH ×2 (08:16→20:10)
[2020-07-10] MEDS: ASCORBIC ACID 500 MG TAB PO SCH (08:17)
[2020-07-10] MEDS: OMEGA-3 (PURIFIED FISH OIL) 1 GM CAP PO SCH (08:17)
[2020-07-10] MEDS: ACETAMINOPHEN 500 MG TAB PO SCH ×2 (08:17→20:09)
[2020-07-10] MEDS ORDERED: PANTOprazole 40 MG TAB PO SCH (09:00)
[2020-07-10] MEDS: PANTOprazole 40 MG in SYRINGE 0 ML IV SCH ×2 (09:03→20:04)
[2020-07-10] MEDS: FAMOTIDINE 20 MG in SYRINGE 3 ML IV SCH ×2 (09:03→20:03)
[2020-07-10] MEDS: FERROUS SULFATE 325 MG TAB PO SCH (09:03)
--- NOTE | 2020-07-10 11:30 | Gastrointestinal Consultation ---
Date of Consultation July 10, 2020 Assessment & Plan (1) GI bleed: (2) Symptomatic anemia: (3) Heme positive stool: History of Obscure GIB with returning symptoms of GIB and symptomatic, acute blood loss anemia. DDx: PUD vs AVM (most likely) vs other. 1. Clear liquid diet today. 2. GoLytely bowel prep this evening. 3. NPO x meds after MN. 4. Continue Pantoprazole 40 mg IV BID. 5. push enteroscopy/Colonoscopy tomorrow with Dr. Galindo. Thank you for allowing us to participate in the care of this patient. If you have any questions or concerns, please do not hesitate to contact us. Supervising Physician Co-Signing Physician Notes I personally evaluated the patient and agree with the findings as documented by NANCY Amezcua Exam: abd: soft, nt, nd obscure GI bleeding, possible small bowel AVM or other etiology. plan for push enteroscopy and colonoscopy tomorrow. History of Present Illness Reason for Consultation: Acute blood loss anemia Requesting Physician: Dr. Coreas Attending Physician: Selvin Koch DO History of Present Illness Patient is a 75 y.o female with a history of acute blood loss anemia admitted on 10/24/2019 for symptomatic anemia. She did undergo an inpatient and outpatient work up with egd, colonoscopy, and VCE which did not demonstrate any source of bleeding. She states she was doing well until a few months ago at which time she started to notice increased belching and flatus. Over the past two weeks, she had been having increased fatigue with exertion and now several days of melanotic, black stools. Concerned, she presented to the ER for evaluation. She was noted to have a profound microcytic anemia with Hgb 6.2, HCT 22.0 and MCV 69.4. She is currently NPO and started on Protonix 40 mg IV BID. Allergies Allergy/AdvReac Type Severity Reaction Status Date / Time codeine AdvReac Mild Nausea/Vomi Verified 07/09/20 16:54 ting Home Medications Medication Instructions Recorded Confirmed Type acetaminophen 1,000 mg PO BID 10/24/19 07/09/20 History glucosamine-chondroitin [Osteo 1 tab PO BID 10/24/19 07/09/20 History Bi-Flex] multivitamin 1 tab PO DAILY 10/24/19 07/09/20 History omega 7-icu-kzw-fish oil [Fish Oil] 1 cap PO DAILY 10/24/19 07/09/20 History ascorbic acid (vitamin C) [Vitamin 0 mg PO DAILY 07/09/20 07/09/20 History C] Patient History Medical History Asthma GI bleed Osteoporosis Prediabetes Social History Smoking Status: Former smoker Tobacco Type: Cigarettes Age Started Using Tobacco: 19; Age Quit Using Tobacco: 20; packs per day: 1; Years Smoked: 0.25; Smoking End Date: quit at 20 yo; Hx Alcohol Use: Yes Alcohol type: wine Hx Substance Use: No Preferred Language: Irish Communication Ability: Effective Small Business Banking Officer Required: No Beliefs That Will Affect Care: None Current Living Situation: Family Other Information That Helps Us Care for You: No Feels Safe at Home: Yes Safety Concerns: Feels Safe At This Time Assistive Devices: None Review of Systems Review of Systems: All systems reviewed & are unremarkable except as noted in HPI & below Physical Exam Constitutional: WD/WN, vitals as above Neck: normal visual inspection Respiratory: normal respiratory effort, lungs clear to auscultation Cardiovascular: Rate/Rhythm: regular rate and regular rhythm Heart Sounds: + murmur Gastrointestinal (Abdomen): normal bowel sounds, soft, nontender, no hepatosplenomegaly Psychiatric: A+Ox3, euthymic affect Results & Data ([facility]) Vital Signs (Past 12 Hours) Vital Signs Temp Pulse Pulse Resp BP BP Pulse Ox 07/10/20 08:39 36.6 C 66 16 132/69 97 07/10/20 08:35 36.6 C 66 16 132/69 97 07/10/20 08:19 36.8 C 67 18 143/69 H 07/10/20 07:42 36.9 C 74 16 123/52 L 97 07/10/20 07:34 63 07/10/20 03:10 36.9 C 64 18 121/70 96 07/09/20 23:48 90 Laboratory Results Abnormal lab results 07/09/20 07/09/20 07/09/20 Range/Units 15:45 15:45 16:35 RBC 3.86 L (4.2-5.4) M/uL Hgb 7.8 L (12.0-16.0) g/dL Hct 27.1 L (37-47) % MCV 70.2 L (80-100) fL MCH 20.2 L (25-34) pg MCHC 28.8 L (32-36) g/dL Immature Gran # (Auto) 0.03 H (0.00-0.02) K/uL Sodium (136-145) mmol/L Chloride (98-107) mmol/L Glucose 114 H (70-99) mg/dl Calcium (8.5-10.1) mg/dl AST 11 L (15-37) U/L Ur Specific [place] (1.000-1.030) Ur Leukocyte Esterase (Negative) Urine WBC (Auto) (0-5) /hpf U Epithel Cells (Auto) (0-5) /lpf Crossmatch See Detail 07/09/20 07/10/20 07/10/20 Range/Units 23:25 06:06 06:06 RBC 3.17 L (4.2-5.4) M/uL Hgb 6.2 L* (12.0-16.0) g/dL Hct 22.0 L (37-47) % MCV 69.4 L (80-100) fL MCH 19.6 L (25-34) pg MCHC 28.2 L (32-36) g/dL Immature Gran # (Auto) (0.00-0.02) K/uL Sodium 146 H D (136-145) mmol/L Chloride 115 H (98-107) mmol/L Glucose (70-99) mg/dl Calcium 7.9 L D (8.5-10.1) mg/dl AST (15-37) U/L Ur Specific [place] > 1.045 H (1.000-1.030) Ur Leukocyte Esterase 1+ H (Negative) Urine WBC (Auto) 5-10 H (0-5) /hpf U Epithel Cells (Auto) 5-10 H (0-5) /lpf Crossmatch PG Care Time/CCT Total # of Minutes Spent Total Time Spent with Patient: Total time spent is greater than 50% in coordination of care (as documented) at patient's floor/unit and/or counseling patient: Coding Level of Care Code 52987 Office/Outpt Visit, New Diagnoses GI bleed K92.2 Symptomatic anemia D64.9 Heme positive stool R19.5
--- NOTE | 2020-07-10 12:52 | Hospitalist Progress Note ---
Date of Service July 10, 2020 Assessment & Plan (1) Acute GI bleeding: Aleah Antonio is a 75 yo female with h/o GI bleed (admission October 2019 for symptomatic anemia secondary to GIB - extensive w/u negative for source) presents for similar complaints of lightheadedness and black tarry stools - admitted to [facility] on 07/09/2020 for acute GI bleed. Acute GI Bleed - h/o previous GIB and symptomatic anemia requiring transfusions, recent tarry black stools, Hgb down to 6.2 this hospitalization requiring 2u pRBCs - suspect GIB 2/2 ulcer vs AVM - Hgb up to 9.0 and hemodynamically stable after 2u pRBCs - continue to transfuse as necessary - continue NSS + KCl 20mEq @125cc/hr - continue ferrous sulfate 325 mg PO QAM - started on Protonix 40mg IV BID for upper GIB ppx - continue - GI consulted: planning for EGD/colonoscopy tomorrow CODE STATUS: Conditional code. Patient does not desire intubation or invasive airway techniques. Does desire CPR/defibrillation if appropriate. FEN/GI: Golytely bowel prep and NPO at midnight, NSS with KCl 20 meq @125 mL/hr DVT ppx: SCDs Dispo: Med/surg with tele (2) Chronic blood loss anemia: Admission and Anticipated Discharge Date Admission Date: July 09, 2020 Supervising Physician Co-Signing Physician Notes I personally examined the patient and verified all wall points of history and exam, discussed case, and agree with decision making with Dr Lomeli. feeling better. transfusion running. ongoing mild UGI sx but no real pain. no further BM vitals noted nad heent nc at mmm breathing unlabored no accessory muscles good effort skin no rashes no pallor or icterus GI bleeding with acute (probably subacute) blood loss anemia now getting transfused 2 units PRBC - hemodynamically stable. for endoscopic w/u tomorrow. continue acid suppression for now to help if source UGI, continue supportive care otherwise otherwise as above Subjective Patient's hemoglobin downtrended to 6.2 this AM - was consented and started on 2u pRBCs. Remained hemodynamically stable despite drop in Hgb. The patient reports 4 days of black tarry stools and also admits to occasional black tarry stools every week for "a while". Reports that she did not take PPI for last several months and has had daily symptoms of epigastric burning and postprandial regurgitation. Denies fever/chills, lightheadedness, dizziness, chest pain, SOB. Denies having BM since Wednesday. Review of Systems Review of Systems: Pertinent positives and negatives mentioned in HPI. Physical Exam Physical Exam: General: A&Ox3. NAD. Cooperative. HEENT: Atraumatic, normocephalic. Pulm: CTAB A&P. -wheezes, -rales, -rhonchi. Symmetrical chest rise. No increase work of breathing. No respiratory distress. Cardiac: RRR, -mrg. Radial pulses intact and symmetrical. Abdominal: soft, non-tender, non-distended, BS x 4 Results & Data Results & Data ([facility]) Vital Signs (Past 12 Hours) Vital Signs Temp Pulse Pulse Resp BP BP Pulse Ox 07/10/20 12:15 36.9 C 63 16 111/63 94 07/10/20 11:50 36.8 C 67 18 127/62 97 07/10/20 08:39 36.6 C 66 16 132/69 97 07/10/20 08:35 36.6 C 66 16 132/69 97 07/10/20 08:19 36.8 C 67 18 143/69 H 07/10/20 07:42 36.9 C 74 16 123/52 L 97 07/10/20 07:34 63 07/10/20 03:10 36.9 C 64 18 121/70 96 Resident Activity Tracking Resident Involvement: Resident Care Provided Care Provided: Adult [facility] Medicine
--- NOTE | 2020-07-10 15:47 | Electrocardiogram Report ---
Test Reason : Blood Pressure : / mmHG Vent. Rate : 087 BPM Atrial Rate : 087 BPM P-R Int : 158 ms QRS Dur : 084 ms QT Int : 354 ms P-R-T Axes : 037 -06 058 degrees QTc Int : 425 ms Normal sinus rhythm Septal infarct , age undetermined Abnormal ECG When compared with ECG of 24-OCT-2019 18:09, Nonspecific T wave abnormality, improved in Inferior leads Confirmed by Leobardo Keith ([id number]) on 07/10/2020 3:46:57 PM Referred By: Confirmed By:Leobardo Keith
[2020-07-10 15:59] LABS: Hematocrit (blood only) 29.3 % (37-47)
--- NOTE | 2020-07-10 17:31 | Billing Data ---
Date of Service July 10, 2020 Coding Level of Care Code 77058 Subseq Hosp Care Lvl 3
[2020-07-10] MEDS: LAVAGE SOLUTION 4000ML PO SCH (18:30)
--- NOTE | 2020-07-10 23:56 | Billing Data ---
Date of Service July 10, 2020 Coding Level of Care Code 18885 Initial Inpt Care Lvl 3
[2020-07-11 02:53] LABS: Basophils # (auto) 0.05 K/uL (0-0.2); Basophils % (auto) 0.9 %; Eosinophils # (auto) 0.31 K/uL (0-0.5); Eosinophils % (auto) 5.8 %; Hematocrit (blood only) 27.8 % (37-47); Hemoglobin 8.4 g/dL (12.0-16.0); Immature Granulocytes # (auto) 0.03 K/uL (0.00-0.02); Immature Granulocytes % (auto) 0.6 %; Lymphocytes # (auto) 1.69 K/uL (1.2-3.4); Lymphocytes % (auto) 31.5 %; Mean Corpuscular Hemoglobin 22.2 pg (25-34); Mean Corpuscular Hgb Conc 30.2 g/dL (32-36); Mean Corpuscular Volume 73.4 fL (80-100); Mean Platelet Volume 9.4 fL (7.4-10.4); Monocytes # (auto) 0.68 K/uL (0.11-0.59); Monocytes % (auto) 12.7 %; Neutrophils # (auto) 2.61 K/uL (1.4-6.5); Neutrophils % (auto) 48.5 %; Platelet Count 258 K/uL (130-400); RDW Coefficient of Variation 16.6 % (11.5-14.5); Red Blood Count 3.79 M/uL (4.2-5.4); White Blood Count 5.37 K/uL (4.8-10.8)
[2020-07-11 03:11] LABS: BUN Creatinine Ratio 7.4 (10-20); Calcium 7.8 mg/dl (8.5-10.1); Creatinine Clr Calc Pharmacy 63.5 ml/min; Est GFR (African American) 99.4; Est GFR (Non-African American) 85.8; Potassium 3.8 mmol/L (3.5-5.1)
[2020-07-11] MEDS: LAVAGE SOLUTION 4000ML PO SCH (03:11)
[2020-07-11 03:22] LABS: Hypochromasia Present
[2020-07-11] MEDS: NSS + 20MEQ KCL 20 MEQ/1,000 ML BAG IV SCH ×2 (06:01→15:33)
[2020-07-11] MEDS: GLUCOSAMINE SULFATE 500 MG CAP PO SCH (09:28)
[2020-07-11] MEDS: OMEGA-3 (PURIFIED FISH OIL) 1 GM CAP PO SCH (09:28)
[2020-07-11] MEDS: FAMOTIDINE 20 MG in SYRINGE 3 ML IV SCH (09:28)
[2020-07-11] MEDS: PANTOprazole 40 MG in SYRINGE 0 ML IV SCH (09:29)
[2020-07-11] MEDS: ASCORBIC ACID 500 MG TAB PO SCH (09:29)
[2020-07-11] MEDS: MULTIVITAMIN TAB PO SCH (09:29)
[2020-07-11] MEDS: ACETAMINOPHEN 500 MG TAB PO SCH (09:32)
[2020-07-11] MEDS: FERROUS SULFATE 325 MG TAB PO SCH (09:32)
--- NOTE | 2020-07-11 10:36 | History & Physical Bridge Note ---
Date of Service July 11, 2020 History & Physical Bridge Note I have examined the patient, reviewed the History & Physical and in the interval since the performance of the History & Physical I have noted the following changes of clinical significance: no changes noted Patient completed 1/2 of bowel preparation but reports she is passing clear liquid stools. No overt GIB sx. Exam: A&Ox3. RRR with MRGs. Lungs CTA bilaterally. Abdomen soft, nontender. Hyperactive bowel sounds. A/P: Acute blood loss and symptomatic anemia. 1. NPO for now. 2. Proceed with EGD/Colonoscopy today with Dr. Galindo. 3. Continue PPI as prescribed. 4. Additional recommendations pending results of testing.
--- NOTE | 2020-07-11 10:44 | Hospitalist Progress Note ---
Date of Service July 11, 2020 Assessment & Plan (1) Acute GI bleeding: Aleah Antonio is a 75 yo female with h/o GI bleed (admission October 2019 for symptomatic anemia secondary to GIB - extensive w/u negative for source) presents for similar complaints of lightheadedness and black tarry stools - admitted to [facility] on 07/09/2020 for acute GI bleed. Acute GI Bleed - h/o previous GIB and symptomatic anemia requiring transfusions, recent tarry black stools, Hgb down to 6.2 this hospitalization requiring 2u pRBCs - suspect GIB 2/2 ulcer vs AVM - Hgb up to 9.0 and hemodynamically stable after 2u pRBCs - continue to transfuse as necessary - continue NSS + KCl 20mEq @125cc/hr - continue ferrous sulfate 325 mg PO QAM - started on Protonix 40mg IV BID for upper GIB ppx - continue - GI consulted: planning for EGD/colonoscopy tomorrow CODE STATUS: Conditional code. Patient does not desire intubation or invasive airway techniques. Does desire CPR/defibrillation if appropriate. FEN/GI: Golytely bowel prep and NPO at midnight, NSS with KCl 20 meq @125 mL/hr DVT ppx: SCDs Dispo: Med/surg with tele (2) Chronic blood loss anemia: Admission and Anticipated Discharge Date Admission Date: July 10, 2020 Review of Systems Review of Systems: Pertinent positives and negatives mentioned in HPI. Physical Exam Physical Exam: General: A&Ox3. NAD. Cooperative. HEENT: Atraumatic, normocephalic. Pulm: CTAB A&P. -wheezes, -rales, -rhonchi. Symmetrical chest rise. No increase work of breathing. No respiratory distress. Cardiac: RRR, -mrg. Radial pulses intact and symmetrical. Abdominal: soft, non-tender, non-distended, BS x 4 Results & Data Results & Data ([facility]) Vital Signs (Past 12 Hours) Vital Signs Temp Pulse Resp BP Pulse Ox 07/11/20 08:11 36.6 C 59 L 20 138/69 97 07/11/20 00:00 37.0 C 64 18 124/63 96
[2020-07-11] MEDS ORDERED: ATROPINE SULFATE 0.1 MG/ML 10ML SYR IV PRN (12:14)
[2020-07-11] MEDS ORDERED: ePHEDrine sulfate 50 MG/ML AMP IV PRN (12:14)
[2020-07-11] MEDS ORDERED: PROPOFOL IV EMULSION 10 MG/ML 20 ML VIAL IV ONE (12:57)
[2020-07-11] MEDS ORDERED: LIDOCAINE HCL 2% 2 ML VIAL/AMP(20MG/ML) INFIL ONE (12:57)
--- NOTE | 2020-07-11 13:09 | Anesthesiology Consultation ---
Date of Service July 11, 2020 Assessment & Plan ASA ASA3 Proposed Anesthesia Anesthesia Type: MAC Risk / Benefits Reviewed With: PT / POA / Parent / Guardian, Accepts Plan and Informed Consent Obtained History Surgery Operation Date: 07/11/20 16:00 Proposed Procedures p Colonoscopy EGD Dr. Galindo - Francisco Galindo MD Height/Weight Height: 5 ft 1 in Weight: 68.8 kg Allergies Allergy/AdvReac Type Severity Reaction Status Date / Time codeine AdvReac Mild Nausea/Vomi Verified 07/09/20 16:54 ting Medications Home Medications Medication Instructions Recorded Confirmed Last Taken acetaminophen 1,000 mg PO BID 10/24/19 07/09/20 07/09/20 08:00 glucosamine-chondroitin [Osteo 1 tab PO BID 10/24/19 07/09/20 07/09/20 08:00 Bi-Flex] multivitamin 1 tab PO DAILY 10/24/19 07/09/20 07/09/20 omega 3-hms-cci-fish oil [Fish Oil] 1 cap PO DAILY 10/24/19 07/09/20 07/09/20 ascorbic acid (vitamin C) [Vitamin 0 mg PO DAILY 07/09/20 07/09/20 07/09/20 C] Active Medications Generic Name Dose Route Start Last Admin Trade Name Jeremieq PRN Reason Stop Dose Admin Acetaminophen 500 mg 07/10/20 09:00 07/11/20 09:32 Acetaminophen 500 Mg Tab PO 08/09/20 08:59 500 mg BID ASUNCION Administration Ascorbic Acid 500 mg 07/10/20 09:00 07/11/20 09:29 Ascorbic Acid 500 Mg Tab PO 08/09/20 08:59 500 mg DAILY ASUNCION Administration Ferrous Sulfate 325 mg 07/10/20 09:00 07/11/20 09:32 Ferrous Sulfate 325 Mg Tab PO 08/09/20 08:59 Not Given QAM ASUNCION Fish Oil 1 gm 07/10/20 09:00 07/11/20 09:28 [place]-3 (Purified Fish Oil) 1 Gm Cap PO 08/09/20 08:59 1 gm DAILY ASUNCION Administration Glucosamine Sulfate 500 mg 07/09/20 22:30 07/11/20 09:28 Glucosamine Sulfate 500 Mg Cap PO 08/08/20 22:29 500 mg BID ASUNCION Administration Potassium Chloride/Sodium Chloride 20 meq in 1,000 mls @ 125 mls/hr 07/10/20 02:45 07/11/20 11:40 Normal Saline W/20 Meq Kcl IV 08/09/20 02:44 0 mls/hr .Q8H ASUNCION Infusion Pantoprazole Sodium 40 mg/ 10 mls @ 5 mls/min 07/10/20 09:00 07/11/20 09:29 Syringe IV 08/09/20 08:59 5 mls/min BID ASUNCION Administration Famotidine 20 mg/ Syringe 5 mls @ 2.5 mls/min 07/10/20 09:00 07/11/20 09:28 IV 08/09/20 08:59 2.5 mls/min BID ASUNCION Administration Multivitamins 1 tab 07/10/20 09:00 07/11/20 09:29 Multivitamin Tab PO 08/09/20 08:59 1 tab DAILY ASUNCION Administration NPO Date Last Intake of Fluids: 07/10/20 Time Last Intake of Fluids: 21:00 Date Last Intake of Solids: 07/09/20 Time Last Intake of Solids: 13:00 Past Medical History Medical History Asthma GI bleed Osteoporosis Prediabetes Exercise / Class Metabolic Activity II 4-5 Yardwork/Stairs/Walk up hill Past Anesthesia History No Hx of Anesthesia Complications and No Family Hx of Anesthesia Complications History of PONV No Hx of PONV and No Hx of Motion Sickness Social History Smoking Status: Former smoker tobacco type: cigarettes Smoking End Date: quit at 20 yo Hx Alcohol Use: Yes Alcohol type: wine alcohol intake frequency: holidays/special occasions only Hx Substance Use: No Review of Systems denies fever/cough/ colds/ chest pain/ SOB/ MARIO denies MARIO Physical Exam Vital Signs Last Vital Signs Temp 37.1 C 07/11/20 12:04 Pulse 60 07/11/20 12:04 Resp 18 07/11/20 12:04 BP 145/71 H 07/11/20 12:04 Pulse Ox 98 07/11/20 12:04 ENMT Mouth: no TMJ abnormality and no dentition abnormality Thyromental Distance: > or= 3.5 Finger Breadths Mallampati Class: II Neck neck extension not limited Respiratory normal respiratory effort; no respiratory distress Auscultation: lungs clear to auscultation bilaterally Cardiovascular Rate/Rhythm: regular rate and regular rhythm Neurologic moves all extremities Psychiatric Orientation: alert and oriented x 3 Testing Laboratory Results 07/11/20 02:23 07/11/20 02:23 PT 10.3 Seconds (9.0-12.0) 07/09/20 16:41 INR 1.0 (0.9-1.1) 07/09/20 16:41 Urine Color Yellow 07/09/20 23:25 Urine Appearance Clear (Clear) 07/09/20 23:25 Urine pH 5.0 (4.5-7.5) 07/09/20 23:25 Ur Specific Aristes > 1.045 (1.000-1.030) H 07/09/20 23:25 Urine Protein Negative (Negative) 07/09/20 23:25 Urine Glucose (UA) Negative (Negative) 07/09/20 23:25 Urine Ketones Negative (Negative) 07/09/20 23:25 Urine Nitrite Negative (Negative) 07/09/20 23:25 Ur Leukocyte Esterase 1+ (Negative) H 07/09/20 23:25 Urine WBC (Auto) 5-10 /hpf (0-5) H 07/09/20 23:25 Urine RBC (Auto) 0-4 /hpf (0-4) 07/09/20 23:25 U Hyaline Cast (Auto) 0 /lpf (0-5) 07/09/20 23:25 U Epithel Cells (Auto) 5-10 /lpf (0-5) H 07/09/20 23:25 Urine Bacteria (Auto) Negative (Negative) 07/09/20 23:25 Blood Type A Positive 07/09/20 16:35 Antibody Screen NEGATIVE 07/09/20 16:35
--- NOTE | 2020-07-11 14:02 | GI REPORT ---
Patient Name: Aleah Antonio Procedure Date: 07/11/2020 12:59 PM Date of : 1945 Admit Type: Inpatient Age: 75 Gender: Female Attending MD: Francisco Galindo MD Procedure: Small bowel enteroscopy Providers: Francisco Galindo MD Referring MD: Selvin Koch Indications: Melena Medicines: Monitored Anesthesia Care Complications: No immediate complications. Estimated blood loss: None. Estimated Blood Loss: Estimated blood loss: none. Procedure: Pre-Anesthesia Assessment: - Prior Anticoagulants: The patient has taken no previous anticoagulant or antiplatelet agents. - ASA Grade Assessment: III - A patient with severe systemic disease. After obtaining informed consent, the endoscope was passed under direct vision. Throughout the procedure, the patient's blood pressure, pulse, and oxygen saturations were monitored continuously. The Colonoscope was introduced through the mouth, and advanced to the fourth part of duodenum. After obtaining informed consent, the endoscope was passed under direct vision. Throughout the procedure, the patient's blood pressure, pulse, and oxygen saturations were monitored continuously. The small bowel enteroscopy was accomplished without difficulty. The patient tolerated the procedure well. Findings: A large hiatal hernia was present. The entire examined stomach was normal. There was no evidence of significant pathology in the duodenal bulb, in the second portion of the duodenum, in the third portion of the duodenum and in the fourth portion of the duodenum. Impression: - Large hiatal hernia. - Normal stomach. - Normal duodenal bulb, second portion of the duodenum, third portion of the duodenum and fourth portion of the duodenum. - No specimens collected. Recommendation: - [facility]. - Resume previous diet today. Francisco Galindo MD 07/11/2020 2:01:40 PM This report has been signed electronically. Note Initiated On: 07/11/2020 12:59 PM Number of Addenda: 0 I attest to the content of the Intraoperative Record and orders documented therein, exceptions below {[id number]}
--- NOTE | 2020-07-11 14:05 | GI REPORT ---
Patient Name: Aleah Antonio Procedure Date: 07/11/2020 12:57 PM Date of : 1945 Admit Type: Inpatient Age: 75 Gender: Female Attending MD: Francisco Galindo MD Procedure: Colonoscopy Providers: Francisco Galindo MD Referring MD: Selvin Koch Indications: Melena Medicines: Monitored Anesthesia Care Complications: No immediate complications. Estimated blood loss: None. Estimated Blood Loss: Estimated blood loss: none. Procedure: Pre-Anesthesia Assessment: - Prior Anticoagulants: The patient has taken no previous anticoagulant or antiplatelet agents. - ASA Grade Assessment: III - A patient with severe systemic disease. After I obtained informed consent, the scope was passed under direct vision. Throughout the procedure, the patient's blood pressure, pulse, and oxygen saturations were monitored continuously. The Colonoscope was introduced through the anus and advanced to the cecum, identified by appendiceal orifice and ileocecal valve. The colonoscopy was performed without difficulty. The patient tolerated the procedure well. The quality of the bowel preparation was fair. Findings: Multiple small and large-mouthed diverticula were found in the sigmoid colon and descending colon. Non-bleeding internal hemorrhoids were found during retroflexion. The hemorrhoids were medium-sized. Two sessile polyps were found in the rectum. The polyps were 3 to 5 mm in size. These polyps were removed with a hot snare. Resection and retrieval were complete. Estimated blood loss: none. Impression: - Preparation of the colon was fair. - Diverticulosis in the sigmoid colon and in the descending colon. - Non-bleeding internal hemorrhoids. - Two 3 to 5 mm polyps in the rectum, removed with a hot snare. Resected and retrieved. Recommendation: - [facility]. - Resume previous diet today. trend H/H -start anusol suppositories BID for hemorrhoids for 2 weeks -will likely need a double balloon enteroscopy as an outpatient if this persists. Francisco Galindo MD 07/11/2020 2:05:15 PM This report has been signed electronically. Note Initiated On: 07/11/2020 12:57 PM Number of Addenda: 0 I attest to the content of the Intraoperative Record and orders documented therein, exceptions below {[id number]}
--- NOTE | 2020-07-11 14:08 | Procedure Note ---
Procedure Note Date of Service July 11, 2020 GI brief procedure note push enteroscopy colonoscopy findings: large hiatal hernia, diverticulosis, medium internal hemorrhoids, polyps removed. No evidence of blood nor active bleeding throughout both procedures. Recs: diet as tolerated trend H/H start anusol suppositories BID for 2 weeks for hemorrhoids will likely need a double balloon enteroscopy to evaluate further if symptoms persist or recur, likely as an outpatient Francisco Galindo MD Gastroenterology Coding
--- NOTE | 2020-07-11 14:36 | Anesthesiology Progress Note ---
Date of Service July 11, 2020 Anesthesia Post Procedure Vital Signs Vital Signs: Temp Pulse Pulse Resp BP BP Pulse Ox 07/11/20 14:32 56 L 16 135/70 98 07/11/20 14:20 54 L 16 135/66 98 07/11/20 14:05 36.8 C 57 L 18 117/64 98 07/11/20 12:04 37.1 C 60 18 145/71 H 98 07/11/20 08:11 36.6 C 59 L 20 138/69 97 07/11/20 00:00 37.0 C 64 18 124/63 96 07/10/20 19:23 36.9 C 65 18 143/77 H 98 07/10/20 16:00 69 07/10/20 15:38 37.1 C 61 18 133/66 95 Transfer of Care Handoff Completed per policy Notes Mental Status: alert / awake / arousable and participated in evaluation Patient Amnestic to Procedure: Yes Nausea / Vomiting: adequately controlled Pain: adequately controlled Airway Patency, RR, SpO2: stable & adequate BP & HR: stable & adequate Hydration State: stable & adequate Anesthetic Complications: no major complications apparent and Pt Satisfied with anesthetic care
[2020-07-11 15:01] LABS: Hematocrit (blood only) 28.5 % (37-47); Hemoglobin 8.6 g/dL (12.0-16.0)
--- NOTE | 2020-07-11 15:10 | Discharge Summary ---
Date of Service July 11, 2020 Admission HPI Per Admitting Provider 75-year-old female past medical history significant for anemia secondary to GI bleed in October 2019 presents for 2 days of black tarry stools with some associated lightheadedness with activity, without shortness of breath, chest pain, abdominal pain, nausea or vomiting, dizziness. Of note patient was admitted in October 2019 for similar presentation, did have EGD and colonoscopy, as well as capsule endoscopy for small bowel visualization approximately 2 weeks following discharge without any identifiable cause of bleeding. Schatzki ring and hiatal hernia noted on EGD at that time. Per notes by Dr. Dewitt, patient was to be on Protonix 40 mg daily, however the patient reports that after receiving this medication in the hospital she had no further refills and was not sure how to call to get it refilled therefore has not been taking it for at least 6 months. Patient noticed that after stopping Protonix, she started having more burping and gas, but no "heartburn". No recent sick contacts. No fevers. Admission Exam Per Admitting Provider Constitutional: WD/WN, vitals as above Eyes: PERRL, conjunctivae normal, anicteric sclerae ENMT: external ear and nose normal, oropharynx normal Neck: normal visual inspection Respiratory: normal respiratory effort, lungs clear to auscultation Cardiovascular: RRR, no murmur, no edema Gastrointestinal (Abdomen): normal bowel sounds, soft, nontender, no hepatosplenomegaly Musculoskeletal: no cyanosis or clubbing, extremities motor strength 5/5 Skin: no rashes, warm and dry Neurologic: Sensory and motor exams grossly normal Psychiatric: A+Ox3, euthymic affect Principal Diagnosis GI Bleed Discharge Exam General: A&Ox3. NAD. Cooperative. HEENT: Atraumatic, normocephalic. Pulm: CTAB A&P. -wheezes, -rales, -rhonchi. Symmetrical chest rise. No increase work of breathing. No respiratory distress. Cardiac: RRR, -mrg. Radial pulses intact and symmetrical. Abdominal: soft, non-tender, non-distended, BS x 4 Discharge Data Allergies Allergy/AdvReac Type Severity Reaction Status Date / Time codeine AdvReac Mild Nausea/Vomi Verified 07/09/20 16:54 ting Consultations 07/09/20 20:39 ED Decision to Admit Stat 07/09/20 22:19 Consult Gastroenterology Routine Procedures Performed Operation Date: 07/11/20 16:00 Actual Procedures p Small Bowel Enteroscopy EGD - Francisco Galindo MD s Colonoscopy Polypectomy - Francisco Galindo MD Ordered Studies 07/09/20 16:37 CT abd pelvis IV con only Stat Hospital Course (1) Acute GI bleeding: Aleah Antonio is a 75 yo female with h/o GI bleed (admission October 2019 for symptomatic anemia secondary to GIB - extensive w/u negative for source) presents for similar complaints of lightheadedness and black tarry stools - admitted to [facility] on 07/09/2020 for acute GI bleed. Acute GI Bleed H/o previous GIB and symptomatic anemia requiring transfusions, recent tarry black stools, Hgb down to 6.2 this hospitalization requiring 2u pRBCs - suspect AVM - GI consulted: EGD/Colonoscopy with non-bleeding internal hemorrhoids and no other visualized source of bleeding in upper or lower GI tract - Hgb up to 9.0 and hemodynamically stable after 2u pRBCs, IVFs, IV PPI - f/u with GI as outpatient for double balloon enteroscopy - recommend close PCP f/u and close monitoring of H/H - in 1 week, then in 1 month, then every 2 months --> transfuse as necessary - Anusol suppositories BID x2 weeks for hemorrhoids - continue ferrous sulfate 325 mg PO QOD after discharge (2) Chronic blood loss anemia: Total Time Total Time Spent Total Time Spent (In Minutes): 30 minutes Total Time Includes: Examination of the Patient, Discharge Planning and Medication Reconciliation Discharge Plan Discharge Items Patient Disposition: Home - Self-Care Reason For Visit: GIB Discharge Diagnosis: GI Bleed Activity: Per Instructions section Non-emergency contact: Primary Care Provider and Account Manager Relief Call non-emergency contact if: you have any medication questions and your symptoms worsen Follow-up/Referrals: Virgilio Carlson MD [Primary Care Provider] - Diet: Regular Addtl Attending Provider Instructions: You were admitted to [facility] on 07/09/2020 for an acute GI bleed. You were given 2 units of packed red blood cells, IV acid-reducing medications (Pepcid and Protonix) and IV fluids for a presumed GI bleed. Your hemoglobin improved appropriately after the blood products, and you did not have any signs of active bleeding while in the hospital. Our GI doctors were consulted to help determine the cause of your GI bleed: they did an upper and lower endoscopy - upper endoscopy did not show any sources of bleeding and lower endoscopy showed internal hemorrhoids that were not actively bleeding. At this point, it is most likely that the source of your GI bleeds is arteriovenous malformations, which are abnormal collections of blood vessels on the inside of your GI tract that likely often bleed. You will be discharged on 07/11/2020 in improved, stable condition. You will need to follow up closely with your PCP to monitor your hemoglobin level to make sure it stays stable: we recommend that you follow-up for blood tests in 1 week, then 1 month, then every 2 months. You should also follow up closely with your GI doctor, as he would like to do more endoscopic testing to visualize the remainder of your small intestine, which was not visualized during the upper endoscopy in the hospital. You should also start Anusol suppositories for your internal hemorrhoids - this suppository can be used twice per day for he next 2 weeks. Additionally, you should start taking an iron supplement every other day. Lastly, you should avoid taking Ibuprofen/Motrin as it can have mild blood- thinning effect and cause further bleeding. You should continue to take all of your regular home medications. We hope you continue to feel well. It was a pleasure to help provide your care while you were hospitalized. Pending Studies at Discharge: No Stand-Alone Forms: [facility], Smoking Cessation Medications and DC Order Prescriptions: New ferrous sulfate 325 mg (65 mg iron) tablet 325 mg PO Q OTHER DAY Qty: 90 RF: 3 hydrocortisone acetate [Anusol-HC] 25 mg suppository 25 mg [place] DAILY 14 Days RF: 0 Continued multivitamin Tablet 1 tab PO DAILY RF: 0 acetaminophen 500 mg Tablet 1,000 mg PO BID RF: 0 glucosamine-chondroitin [Osteo Bi-Flex] 250-200 mg Tablet 1 tab PO BID RF: 0 omega 9-qfe-kyy-fish oil [Fish Oil] 1,000 mg (120 mg-180 mg) Capsule 1 cap PO DAILY RF: 0 ascorbic acid (vitamin C) [Vitamin C] 500 mg Tablet 0 mg PO DAILY RF: 0 Discharge Orders: Discharge Order (Routine); Ordered 07/11/20 Ordered By: Erlin Lomeli Admission Data Admit Date/Time: 07/10/20 17:28 Attending Provider: Selvin Koch Admit Provider: Wendy Jacob Primary Care Provider: Virgilio Carlson Other Providers: Dale Coreas ; Case,Jay Renee Other Interventions: Discharge Summary Assessment (RN) Last Done: 07/11/20 17:03 Supervising Physician Co-Signing Physician Notes I personally examined the patient and verified all wall points of history and exam, discussed case, and agree with decision making with Dr Lomeli. Feeling okay after scope. Results reviewed with patient. No new complaints. Vitals noted, in general she is awake and alert pleasant no distress. HEENT normocephalic atraumatic mucous membranes moist. Breathing unlabored no accessory muscle use good effort. Skin shows no rashes no pallor or icterus. Neuro shows no focal deficits. Endoscopic reports and pictures reviewed. GI bleeding with subacute/chronic blood loss anemianow stable for home. Given negative upper and lower GI work-up, small bowel AVM type pathology is extremely likely. She will have a double-balloon enteroscopy as an outpatient in the near future as noted by GIhowever in discussion with the patient we discussed that largely the management of this will probably be expectant with serial periodic CBCs, iron supplementation, and as needed transfusions. Ongoing outpatient follow-up. Stable for discharge home, otherwise as above. Resident Activity Tracking Resident Involvement: Resident Care Provided Care Provided: Adult Hospital Medicine
--- NOTE | 2020-07-11 18:14 | Billing Data ---
Date of Service July 11, 2020 Coding Level of Care Code D/C Day Management <30 mins
== END 2020-07-11 17:36 | disposition home or self-care (01) | DRG 394 ==
LOC: 2W 15:15 → ED 15:15 → SUATTDRO 21:24 → 2W 21:53